=== PATIENT | male | born 1965 | race Caucasian/White ===

== ENCOUNTER → 2020-03-05 10:44 | Outpatient (BNVA) | payer BC, SELFPAY | PROVIDERS: PCP Internal Medicine; Referring Provider Internal Medicine; Visit Provider Orthopaedic Surgery | DX: M17.12 Unilateral primary osteoarthritis, left knee (principal) | CPT/HCPCS: 20610; J1100 ==

== ENCOUNTER 2020-08-27 08:05 | Outpatient (REF) | payer BC, SELFPAY ==
--- NOTE | ~2020-08-27 | XR_ITS ---
EXAMINATION: BILATERAL KNEE X-RAY CLINICAL INFORMATION: Pain COMPARISON: Previous x-ray June 2018 TECHNIQUE: Standing AP view of both knees and lateral and sunrise view of the left knee FINDINGS: Left: Bone alignment is normal. No fracture or dislocation is seen. There is arthritis at the femoral tibial and patellofemoral joints with joint space narrowing and osteophyte formation. There is a small joint effusion. The right knee is unremarkable. XR/XR knee LT 2V IMPRESSION: Left knee arthritis.
--- NOTE | ~2020-08-27 | XR_ITS ---
EXAMINATION: BILATERAL KNEE X-RAY CLINICAL INFORMATION: Pain COMPARISON: Previous x-ray June 2018 TECHNIQUE: Standing AP view of both knees and lateral and sunrise view of the left knee FINDINGS: Left: Bone alignment is normal. No fracture or dislocation is seen. There is arthritis at the femoral tibial and patellofemoral joints with joint space narrowing and osteophyte formation. There is a small joint effusion. The right knee is unremarkable. XR/XR knee standing BI IMPRESSION: Left knee arthritis.
== END 2020-08-27 08:06 | disposition home or self-care (01) ==
LOC: HO.HOSX 08:05
PROVIDERS: Visit Provider Orthopaedic Surgery
DX: M17.12 Unilateral primary osteoarthritis, left knee (principal)
CPT/HCPCS: 73560; 73565

== ENCOUNTER → 2020-12-13 09:51 | Outpatient (BNVA) | payer BC, SELFPAY | PROVIDERS: PCP Internal Medicine; Visit Provider Orthopaedic Surgery | DX: Z01.812 Encounter for preprocedural laboratory examination (principal); Z01.810 Encounter for preprocedural cardiovascular examination ==

== ENCOUNTER → 2021-01-10 13:05 | Outpatient (BNVA) | payer BC, MEDICARE, SELFPAY | PROVIDERS: Visit Provider Physician Assistant ==

== ENCOUNTER 2021-01-15 08:14 | Inpatient (IN) | payer BC, MEDICARE, SELFPAY ==
--- NOTE | 2020-12-13 11:27 | ECG_ITS ---
Test Reason : preop Blood Pressure : / mmHG Vent. Rate : 056 BPM Atrial Rate : 056 BPM P-R Int : 150 ms QRS Dur : 094 ms QT Int : 416 ms P-R-T Axes : 025 010 002 degrees QTc Int : 401 ms Sinus bradycardia Otherwise normal ECG When compared with ECG of 07-FEB-2019 10:32, No significant change was found Referred By: Robin Cruz Electronically Signed By:TEZ SHAW
[2020-12-13 12:35] LABS: MANUAL DIFF FLAG NO
[2020-12-13 12:38] LABS: Basophils Percent Auto 0.5 % (0-2); Eosinophils Absolute Auto 0.1 X10*3/uL (0.0-0.4); Eosinophils Percent Auto 2.2 % (0-4); Hematocrit 43.1 % (42-52); Hemoglobin 14.1 g/dl (14.0-18.0); Imm Gran Abs Auto 0.02 X10*3/uL (0.00-0.03); Imm Gran Pct Auto 0.3 % (0.0-0.4); Lymphocytes Absolute Auto 1.4 X10*3/uL (1.2-4.9); Lymphocytes Percent Auto 23.8 % (20-40); Mean Corpuscular HGB Conc 32.7 g/dl (31.0-36.0); Mean Corpuscular Hemoglobin 29.1 pg (27.0-33.0); Mean Corpuscular Volume 88.9 fL (80-98); Mean Platelet Volume 9.4 fL (9.4-12.4); Monocytes Absolute Auto 0.4 X10*3/uL (0.1-1.2); Neutrophils Percent Auto 66.2 % (45-73); Platelet Count 194 X10*3/uL (160-400); Red Blood Count 4.85 X10*6/uL (4.60-5.80); Red Cell Distribution Width 12.9 % (11.0-16.0)
[2020-12-13 13:01] LABS: Estimated Average Glucose 114 mg/dL; Hemoglobin A1c % 5.6 %
[2020-12-13 13:03] LABS: Anion Gap 13 (12-20); Blood Urea Nitrogen 13 mg/dL (9-16); Calcium 9.2 mg/dL (8.4-10.2); Carbon Dioxide 27 mmol/L (22-29); Chloride 106 mmol/L (96-108); Estimated Glomerular Filt Rate > 60; Glucose Random 92 mg/dL (60-115); Sodium 142 mmol/L (135-145)
[2021-01-04 12:02] VITALS: BP 128/86; PULSE 65; RESP 16; O2SAT 96; BMI 30.8
--- NOTE | 2021-01-04 12:18 | P.CONAN_ITS ---
Documented by User: Ny Munguia NP 01/14/21 09:24 HPI - Anesthesia Eval Consult details Narrative: 55yo M for Left Knee Replacement Total PCP cleared h/o urinary retention s/p AMPARO 2018. Discussed risk of same with spinal. Will hold off on scopolamine patch for PONV to reduce urinary rentention risk - low risk for PONV with spinal/MAC/block PMFSH Active Problems Active Problems: All Active Problems (Updated 01/04/21 @ 12:01 by Sharri Zamudio RN) Primary osteoarthritis of left knee (Acute) Past Medical History Medical History (Updated 01/04/21 @ 12:55 by Sharri Zamudio RN) Diabetes Hx of sleep apnea Hypertension Osteoarthritis PONV (postoperative nausea and vomiting) Postoperative urinary retention Family History Family History Father No problems noted. Mother No problems noted. Family history of problems with anesthesia: Yes Surgical History Surgical History (Updated 01/04/21 @ 12:01 by Sharri Zamudio RN) H/O lumpectomy History of shoulder surgery Hx of colonoscopy Status post total hip replacement, right (~03/08/19) History of Problems with Anesthesia: Yes (PONV x 1) Social History Social History Are you a primary vocational childcare teacher to a significant other at home: No Do you presently have visiting nurse or other home services: No Alcohol intake: current Alcohol intake frequency: holidays/special occasions only Patient Tobacco Use Status: Former Tobacco user Quit Date: 2018 Tobacco use type: Cigarette Use of substances other than those prescribed or required for medical reasons: No Have you been hit, kicked, punched, or otherwise hurt by someone within the past year? If so, by whom?: No Are you DNR?: No Advance Directives: No Advance Directives Information Provided: No (info given) Advance Directives on File: No Recently lost weight without trying: No Current occupational status: unemployed Current occupation: right handed/ Narrative Narrative: No recent illness No CP/SOB with housework, walking Meds Allergies Allergy/AdvReac Type Severity Reaction Status Date / Time No Known Allergies Allergy Verified 01/10/21 13:23 [No Known Allergies*] Home Medications Medication Instructions Recorded Confirmed Last Taken Type atenolol 25 mg tablet 25 mg PO DAILY 03/05/20 01/04/21 01/15/21 History atorvastatin 20 mg tablet 20 mg PO DAILY 03/05/20 01/04/21 Unknown History blood sugar diagnostic #10 ea 03/05/20 03/06/20 Unknown History blood-glucose meter #1 ea 03/05/20 03/06/20 Unknown History lancets 30 gauge #100 ea 03/05/20 03/06/20 Unknown History lisinopril 40 mg tablet 40 mg PO DAILY 03/05/20 01/04/21 Unknown History metformin 500 mg tablet 500 mg PO BID 03/05/20 01/04/21 Unknown History glipizide 5 mg tablet 1 tab PO QPM 01/04/21 01/04/21 Unknown History Exam Exam Date and Time: January 04, 2021 1218 Height,Weight and Vital Signs: Height 5 ft 9 in Weight 94.801 kg Last Vital Signs Pulse 65 01/04/21 12:02 Resp 16 01/04/21 12:02 BP 128/86 01/04/21 12:02 Pulse Ox 96 01/04/21 12:02 Pertinent Lab Results Pertinent Lab Results: Laboratory Tests 12/13/20 12/13/20 12/13/20 11:54 11:54 11:54 WBC 6.0 RBC 4.85 Hgb 14.1 Hct 43.1 MCV 88.9 MCH 29.1 MCHC 32.7 RDW 12.9 Plt Count 194 MPV 9.4 Immature Gran % (Auto) 0.3 Neut % (Auto) 66.2 Lymph % (Auto) 23.8 [place] % (Auto) 7.0 Eos % (Auto) 2.2 Baso % (Auto) 0.5 Lymph # (Auto) 1.4 [place] # (Auto) 0.4 Eos # (Auto) 0.1 Baso # (Auto) 0.0 Abs Immat Gran (auto) 0.02 Absolute Neuts (auto) 4.0 Absolute Nucleated RBC 0.000 Nucleated RBC % (auto) 0.0 Sodium 142 Potassium 4.0 Chloride 106 Carbon Dioxide 27 Anion Gap 13 BUN 13 Creatinine 1.00 Estim Creat Clear Calc TNP Estimated GFR > 60 Random Glucose 92 Estimat Average Glucose 114 Hemoglobin A1c % 5.6 Calcium 9.2 Narrative Narrative: EKG 11/2020 Vent. Rate : 056 BPM ? ? Atrial Rate : 056 BPM ?? P-R Int : 150 ms? QRS Dur : 094 ms ? ? QT Int : 416 ms ? ? ? P-R-T Axes : 025 010 002 degrees ?? QTc Int : 401 ms ? Sinus bradycardia Otherwise normal ECG When compared with ECG of 07-FEB-2019 10:32, No significant change was found Airway Mallampati Class: I TM Dist: >3cm Neck ROM: Full Partial: Upper and Lower Loose/Missing/Broken Teeth: No Heart: RRR Lungs: CTAB Assessment and Plan Assessment Anesthesia Assessment: Anesthesia Plan Discussed (Spinal/Block. h/o urinary retention s/p AMPARO 2018. Discussed risk of same with spinal. Will hold off on scopolamine patch for PONV to reduce urinary rentention risk - low risk for PONV with spinal/MAC/block) and PAT Visit Final Anesthetic Review Family History of Problems with Anesthesia: Yes History of Problems with Anesthesia: Yes (PONV x 1) Documented by User: Ramez Beckham MD 01/15/21 09:04 [facility] Past Medical History Medical History (Updated 01/04/21 @ 12:55 by Sharri Zamudio RN) Diabetes Hx of sleep apnea Hypertension Osteoarthritis PONV (postoperative nausea and vomiting) Postoperative urinary retention Family History Family History Father No problems noted. Mother No problems noted. Surgical History Surgical History (Updated 01/04/21 @ 12:01 by Sharri Zamudio RN) H/O lumpectomy History of shoulder surgery Hx of colonoscopy Status post total hip replacement, right (~03/08/19) Social History Social History Are you a primary vocational childcare teacher to a significant other at home: No Do you presently have visiting nurse or other home services: No Alcohol intake: current Alcohol intake frequency: holidays/special occasions only Patient Tobacco Use Status: Former Tobacco user Quit Date: 2018 Tobacco use type: Cigarette Use of substances other than those prescribed or required for medical reasons: No Have you been hit, kicked, punched, or otherwise hurt by someone within the past year? If so, by whom?: No Are you DNR?: No Advance Directives: No Advance Directives Information Provided: No (info given) Advance Directives on File: No Recently lost weight without trying: No Current occupational status: unemployed Current occupation: right handed/ Meds Allergies Allergy/AdvReac Type Severity Reaction Status Date / Time No Known Allergies Allergy Verified 01/10/21 13:23 [No Known Allergies*] Home Medications Medication Instructions Recorded Confirmed Last Taken Type atenolol 25 mg tablet 25 mg PO DAILY 03/05/20 01/04/21 01/15/21 History atorvastatin 20 mg tablet 20 mg PO DAILY 03/05/20 01/04/21 Unknown History blood sugar diagnostic #10 ea 03/05/20 03/06/20 Unknown History blood-glucose meter #1 ea 03/05/20 03/06/20 Unknown History lancets 30 gauge #100 ea 03/05/20 03/06/20 Unknown History lisinopril 40 mg tablet 40 mg PO DAILY 03/05/20 01/04/21 Unknown History metformin 500 mg tablet 500 mg PO BID 03/05/20 01/04/21 Unknown History glipizide 5 mg tablet 1 tab PO QPM 01/04/21 01/04/21 Unknown History Assessment and Plan Final Anesthetic Review NPO: Yes ASA Class: III Final Preanesthetic Review: No Changes in Pt Med Stat, Meds/Allgs Chart Reviewed, Consent Obtained/Reviewed and Anes Risks/Benef Reviewed Patient Risk: Intermediate Procedure Risk: Low Anesthetic Plan Anesthetic Plan: MAC:, Spinal and Regional Block Disposition: Standard PACU
[2021-01-05 11:43] LABS: MRSA Nasal PCR NEGATIVE (Negative); SA Nasal PCR NEGATIVE (Negative)
[2021-01-15] VITALS (15 sets, daily range): BP systolic 99–144; BP diastolic 74–100; PULSE 53–97; RESP 16–18; TEMP 36.4–36.8; O2SAT 94–100
--- NOTE | ~2021-01-15 | XR_ITS ---
EXAMINATION: XR KNEE, LEFT CLINICAL INFORMATION: Left knee replacement COMPARISON: Previous x-ray August 2020 TECHNIQUE: Two views of the left knee. FINDINGS: There is a new 3 component left knee replacement in satisfactory position. No fracture or dislocation is seen. There are postoperative changes to the soft tissues. XR/XR knee LT 2V IMPRESSION: Satisfactory appearance of left knee replacement.
[2021-01-15 08:39] LABS: COVID-19 Test Negative (Negative)
[2021-01-15] MEDS: Lactated Ringers 1,000 ML 100 ML IVCONT (08:44)
[2021-01-15 11:17] LABS: Glucose, Whole Blood 102 mg/dL (60-115)
--- NOTE | 2021-01-15 11:47 | PM.OP ---
Brief Operative Note Date of Service: 01/15/21 Pre-op diagnosis: left knee OA Post-op diagnosis: same Procedure: left TKA Implants: [place] triathalon press fit CR Surgeon: Robin Cruz MD Anesthesia: regional and spinal Was an Linux Systems Analyst used for this Procedure?: Yes Linux Systems Analyst: Shane Senior Estimated blood loss (mL): 200 IV fluids (mL): 1,000 Pathology: other Condition: stable Disposition: PACU
--- NOTE | 2021-01-15 11:48 | P.OP_ITS ---
Operative Note Operative Note Date of Service: 01/15/21 Narrative: Pre-op diagnosis: left knee OA Post-op diagnosis: same Procedure: left TKA Implants: [place] triathalon press fit CR Surgeon: Robin Cruz MD Anesthesia: regional and spinal Was an Milieu Counselor used for this Procedure?: Yes Milieu Counselor: Shane Senior Estimated blood loss (mL): 200 IV fluids (mL): 1,000 Pathology: other Condition: stable Disposition: PACU Procedure in detail: Patient was brought to the operating room and prepped and draped in standard sterile fashion. A time-out was called to identify proper site proper procedure proper surgeon IV antibiotics were administered. 1 g of IV tranexamic acid was administered. I began by making a midline incision down to the retinaculum and performed a medial parapatellar arthrotomy. The patella was translated laterally and the knee was flexed up. The medial femoral condyle was eburnated and I performed a small medial peel and resected the infrapatellar fat pad. The lateral patellar facet was also eburnated. Greenlee's line was used to drill my intramedullary femoral guide and my distal femur cut was made in 5 degrees of valgus. I then measured a # _4__ femur and placed my cutting guide and made my anterior posterior and chamfer cuts protecting the soft tissues at all times. Once I was satisfied with my cut I turned my attention to the tibia. I removed the meniscus and , using an external cutting guide, in line with the tibial crest and the third ray, I made my distal tibial cut ( 3 deg slope and 2mm of off the medial side) while protecting the PCL the posterior soft tissues at all times. An extension block was used to confirm appropriate amount of bony resection. I then sized a #_5__ tibia once I was satisfied with the tibial coverage. I placed my trial and, with the trial femur in place, took the knee through range of motion. I was satisfied with the extension and flexion as well as the stability at 0, 30 and 90 degrees. I then turned my attention to the patella where I removed 1 cm from the undersurface of the patella and then trialed a __35a____ patellar button. Again the knee was taken through range of motion I was satisfied with the tracking. I then returned to the femur and drilled my femoral lug holes and prepared the tibia. A femoral bone plug was placed and the knee was irrigated copiously. I then press fit the patella, tibia and femur in standard fashion. I trialed a 9mm and 10mm insert and selected a 9mminsert. The final insert was placed and a 3 minutes iodine soak with local TXA was performed. A Werewolf device was used to control bleeding. The knee was then closed with a running Quill suture, a 3 0 Vicryl and petey on the skin. Patient was then placed in sterile dressing and brought to recovery room in stable condition there were no known complications.
[2021-01-15] MEDS: 0.9 % Sodium Chloride 1,000 ML 80 ML IVCONT (14:45)
[2021-01-15 15:15] LABS: Glucose, Whole Blood 252 mg/dL (60-115)
--- NOTE | 2021-01-15 17:38 | HO.PM.IMCN ---
History of Present Illness Data of Consult Service Date: 01/15/21 Requesting physician: Robin FELDMAN Reason for consult: Medical management 55-year-old gentleman admitted under Orthopedic surgery for an elective left total knee arthroplasty postoperatively patient is doing fine, denies nausea, vomiting, denies worsening knee pain noted to have blood sugars greater than 200, he denies urinary symptoms of urgency frequency, no chest pain, no palpitation, no lightheadedness or dizziness, at home patient blood sugars are under good control on glipizide and metformin. Review of Systems Review of Systems: General no headache, no dizziness, no fever chills. CVS no chest pain, no palpitation. Respiratory no cough no sob. Gastrointestinal no nausea no vomiting, no abdominal pain Yes all other systems are reviewed and are negative [facility] Medical History Diabetes Hx of sleep apnea Hypertension Osteoarthritis PONV (postoperative nausea and vomiting) Postoperative urinary retention Family History Father No problems noted. Mother No problems noted. Pertinent family history: No family history of premature coronary artery disease Surgical History H/O lumpectomy History of shoulder surgery Hx of colonoscopy Status post total hip replacement, right (~03/08/19) Social History Household Members: Significant Other Housing: House Are you a primary transitional care manager to a significant other at home: No Do you presently have visiting nurse or other home services: No Alcohol intake: current Alcohol intake frequency: holidays/special occasions only Patient Tobacco Use Status: Former Tobacco user Quit Date: 2018 Tobacco use type: Cigarette Use of substances other than those prescribed or required for medical reasons: No Currently Displaying Signs/Symptoms of Drug Intoxication Withdrawal: No Have you been hit, kicked, punched, or otherwise hurt by someone within the past year? If so, by whom?: No Do you feel safe in your current relationship?: Yes Is there a partner from a previous relationship who is making you feel unsafe now?: No Are you made to feel afraid or neglected: No Are you DNR?: No Advance Directives: No Advance Directives Information Provided: No (info given) Advance Directives on File: No Do you have thoughts of harming others: None Do you have a plan to hurt others: No Plan Recently lost weight without trying: No How much weight loss: Not applicable Eating poorly because of decreased appetite: No Nutrition screen score: 0 Nutrition Risks: No Nutritional Risk Poor oral hygiene: No Current occupational status: unemployed Current occupation: right handed/ Meds Allergies Allergy/AdvReac Type Severity Reaction Status Date / Time No Known Allergies Allergy Verified 01/15/21 14:50 [No Known Allergies*] Active Medications: Current Medications Acetaminophen (Acetaminophen 325 Mg Tablet) 650 mg PO Q6H PRN PRN Reason: Pain, Mild (Pain Scale 1-3) Atenolol (Atenolol 25 Mg Tablet) 25 mg PO DAILY [facility]; Protocol Atorvastatin Calcium (Atorvastatin Calcium 20 Mg Tablet) 20 mg PO DAILY [facility] Celecoxib (Celecoxib 200 Mg Capsule) 200 mg PO BID [facility] Docusate Sodium (Docusate Sodium 100 Mg Capsule) 100 mg PO BID [facility] Hydromorphone HCl (Hydromorphone Hcl 0.5 Mg/0.5 Ml Syringe) 0.25 mg IVPUSH Q5M PRN; Protocol PRN Reason: Pain, Severe (Pain Scale 7-10) Hydromorphone HCl (Hydromorphone Hcl 0.5 Mg/0.5 Ml Syringe) 0.25 mg IVPUSH Q4H PRN; Protocol PRN Reason: Pain, Severe (Pain Scale 7-10) Promethazine HCl 12.5 mg/ (Sodium Chloride) 50.5 mls @ 202 mls/hr IV ONCE PRN PRN Reason: Nausea and Vomiting Sodium Chloride (Ns) 1,000 mls @ 80 mls/hr IVCONT .[id number] [facility] Last Admin: 01/15/21 14:45 Dose: 80 mls/hr Documented by: Cefazolin Sodium/Dextrose (Ancef) 2 gm in 50 mls @ 100 mls/hr IV POSTOP [facility] Insulin Human Lispro (Insulin Lispro 100 Unit/Ml 3 Ml Vial) 0 unit SUBCUT QIDACHS [facility]; Protocol Ketorolac Tromethamine (Ketorolac Tromethamine 15 Mg/Ml Vial) 15 mg IVPUSH ONCE PRN PRN Reason: Pain, Moderate (Pain Scale 4-6 Ondansetron HCl (Ondansetron Hcl 4 Mg/2 Ml Vial) 4 mg IVPUSH ONCE PRN PRN Reason: Nausea and Vomiting Ondansetron HCl (Ondansetron Hcl 4 Mg/2 Ml Vial) 4 mg IVPUSH Q8H PRN PRN Reason: Nausea and Vomiting Oxycodone HCl (Oxycodone Hcl Immed Release 5 Mg Tablet) 5 mg PO ONCE PRN PRN Reason: Pain, Severe (Pain Scale 7-10) Oxycodone HCl (Oxycodone Hcl Immed Release 5 Mg Tablet) 5 mg PO Q4H PRN PRN Reason: Pain, Moderate (Pain Scale 4-6 Oxycodone HCl (Oxycodone Hcl Er 10 Mg Tab.Er.12h) 10 mg PO BID [facility] Sodium Chloride (0.9 % Sodium Chloride Flush 3 Ml Syringe) 3 ml IVFLUSH QSHIFT [facility] Last Admin: 01/15/21 14:48 Dose: Not Given Documented by: Home Medications Medication Instructions Recorded Confirmed Last Taken Type atenolol 25 mg tablet 25 mg PO DAILY 03/05/20 01/04/21 01/15/21 History atorvastatin 20 mg tablet 20 mg PO DAILY 03/05/20 01/04/21 Unknown History blood sugar diagnostic #10 ea 03/05/20 01/15/21 Unknown History blood-glucose meter #1 ea 03/05/20 01/15/21 Unknown History lancets 30 gauge #100 ea 03/05/20 01/15/21 Unknown History lisinopril 40 mg tablet 40 mg PO DAILY 03/05/20 01/04/21 Unknown History metformin 500 mg tablet 500 mg PO BID 03/05/20 01/04/21 Unknown History glipizide 5 mg tablet 1 tab PO QPM 01/04/21 01/04/21 Unknown History Physical Exam Vital Signs and Narrative: Vital Signs: Last Vital Signs Temp 97.6 F 01/15/21 15:10 Pulse 69 01/15/21 15:10 Resp 16 01/15/21 15:10 BP 122/81 01/15/21 15:10 Pulse Ox 97 01/15/21 15:10 Body Mass Index 30.8 General alert oriented x3,no acute distress. Neck supple, no JVD. CVS regular rate rhythm, Respiratory lungs clear to auscultation, no respiratory distress, no wheeze, no rhonchi. Gastrointestinal abdomen soft, nontender, bowel sounds audible, no guarding , no rigidity. Extremities no edema. Left knee dressing in place no drainage noted Neuro nonfocal /speech clear. Skin no rash Psych appropriate affect Results Labs CBC and Chem 7: 12/13/20 11:54 12/13/20 11:54 Labs: Laboratory Results - last 24 hr 01/15/21 01/15/21 01/15/21 08:13 09:27 15:09 POC Glucose 102 252 H COVID-19 ([facility]ADIS) Negative COVID-19 Clin Com See Note Imaging Radiologist's Impressions: Impressions Knee X-Ray 01/15/21 12:55 IMPRESSION: Satisfactory appearance of left knee replacement. Assessment and Plan (1) Primary osteoarthritis of left knee: Status: Acute 55-year-old gentleman with past medical history significant for [id number] diabetes mellitus, hypertension and elevated cholesterol underwent left knee arthroplasty this morning. Diabetes mellitus type 2 Blood sugars greater than [address] patient on diabetic diet add insulin sliding scale patient is on glipizide and metformin at home will resume home medications Follow blood sugars closely. Hypertension Noted to have soft blood pressure postoperatively therefore will hold lisinopril and continue to Francisco J follow blood pressure closely. Hyperlipidemia will resume lipitor Status post left knee arthroplasty postoperative day 0 Pain management and anticoagulation as per Orthopedic surgery Will follow CBC encourage incentive spirometry Add stool softeners while on high-dose narcotics
--- NOTE | 2021-01-15 18:49 | PC.NURSE ---
IV fluids to stop after current bag is completed per Dr Gonsalves.
[2021-01-15 20:30] LABS: Glucose, Whole Blood 267 mg/dL (60-115)
[2021-01-15] MEDS: Docusate Sodium 100 MG CAPSULE PO (20:55)
[2021-01-15] MEDS: Celecoxib 200 MG CAPSULE PO (20:56)
[2021-01-15] MEDS: Insulin Lispro 100 UNIT/ML 3 ML VIAL SUBCUT (20:56)
[2021-01-15] MEDS: oxyCODONE HCl ER 10 MG TAB.ER.12H PO (20:56)
[2021-01-15] MEDS: HYDROmorphone HCl 0.5 MG/0.5 ML SYRINGE 0.25 MG IVPUSH (20:57)
[2021-01-16 03:50] VITALS: BP 126/78; PULSE 76; RESP 17; TEMP 36.8; O2SAT 95
[2021-01-16 05:33] LABS: MANUAL DIFF FLAG NO
[2021-01-16 05:40] LABS: Basophils Percent Auto 0.1 % (0-2); Hematocrit 36.3 % (42-52); Hemoglobin 12.5 g/dl (14.0-18.0); Imm Gran Abs Auto 0.05 X10*3/uL (0.00-0.03); Imm Gran Pct Auto 0.4 % (0.0-0.4); Lymphocytes Percent Auto 8.6 % (20-40); Mean Corpuscular HGB Conc 34.4 g/dl (31.0-36.0); Mean Corpuscular Hemoglobin 29.5 pg (27.0-33.0); Mean Corpuscular Volume 85.6 fL (80-98); Mean Platelet Volume 9.2 fL (9.4-12.4); Monocytes Absolute Auto 0.9 X10*3/uL (0.1-1.2); Monocytes Percent Auto 7.4 % (2-11); Neutrophils Absolute Auto 10.1 X10*3/uL (2.0-8.3); Neutrophils Percent Auto 83.5 % (45-73); Platelet Count 177 X10*3/uL (160-400); Red Blood Count 4.24 X10*6/uL (4.60-5.80); Red Cell Distribution Width 12.9 % (11.0-16.0); White Blood Count 12.1 X10*3/uL (4.8-10.8)
[2021-01-16 05:58] LABS: Anion Gap 14 (12-20); Blood Urea Nitrogen 15 mg/dL (9-16); Calcium 8.3 mg/dL (8.4-10.2); Carbon Dioxide 25 mmol/L (22-29); Chloride 103 mmol/L (96-108); Creatinine Clr Calc Pharmacy 98.6; Estimated Glomerular Filt Rate > 60; Glucose Fasting 204 mg/dL (60-99); Potassium 4.1 mmol/L (3.3-5.1); Sodium 138 mmol/L (135-145)
[2021-01-16] MEDS: ondansetron HCL 4 MG/2 ML VIAL IVPUSH (06:16)
[2021-01-16 07:31] VITALS: BP 153/69; PULSE 87; RESP 17; TEMP 36.4; O2SAT 99
[2021-01-16] MEDS: atenoloL 25 MG TABLET PO (07:37)
[2021-01-16] MEDS: 0.9 % Sodium Chloride Flush 3 ML SYRINGE IVFLUSH (07:37)
[2021-01-16] MEDS: Atorvastatin Calcium 20 MG TABLET PO (07:37)
[2021-01-16] MEDS: Celecoxib 200 MG CAPSULE PO (07:37)
[2021-01-16] MEDS: Docusate Sodium 100 MG CAPSULE PO (07:37)
[2021-01-16] MEDS: oxyCODONE HCl ER 10 MG TAB.ER.12H PO (07:37)
[2021-01-16] MEDS: Insulin Lispro 100 UNIT/ML 3 ML VIAL SUBCUT ×2 (07:37→11:47)
[2021-01-16] MEDS: HYDROmorphone HCl 0.5 MG/0.5 ML SYRINGE 0.25 MG IVPUSH (07:40)
[2021-01-16 07:50] LABS: Glucose, Whole Blood 197 mg/dL (60-115)
[2021-01-16 07:56] VITALS: BP 153/69; PULSE 87; O2SAT 99
[2021-01-16] MEDS: lisinopriL 20 MG TABLET PO (07:59)
[2021-01-16] MEDS: metFORMIN HCl 500 MG TABLET PO (07:59)
[2021-01-16] MEDS: glipiZIDE 5 MG TABLET PO (07:59)
[2021-01-16 09:05] VITALS: O2SAT 97
--- NOTE | 2021-01-16 09:13 | MHC.CM.PN ---
CM MET WITH PT WHO REPORTS HE LIVES AT HOME WITH HIS AND IS INDEPENDENT WITH CARE AT BASELINE. PT REPORTS HE HAS BEEN USING A CANE AND HAD NO SERVICES POSTBED STITCHER. PT IS AWARE PT IS RECOMMENDING HOME TH[place]APY [place]. PT ASKS FOR A REFERRAL TO BE MADE [facility] A REQUEST THAT HIS NEPHEW, KATY MCKEE, WHO IS A THERAPIST AT THIS AGENCY, BE ASSIGNED TO HIM. REFERRAL AND REQUEST SENT PT REPORTS HE HAS A NEW PCP AT [facility] IN [place], HE BELIEVES THE LAST NAME IS CHELO BUT IS UNSURE. CURRENT DC PLAN IS HOME WITH [facility] TO TRANSPORT
--- NOTE | 2021-01-16 10:07 | MHC.CLN ---
NUTRITION RECOMMEND DIET=DIABETIC 2000 KCAL TO PROVIDE 27.5 KCAL/KG IBW).
--- NOTE | 2021-01-16 10:19 | PM.PNORT ---
Subjective Subjective Date of Service: 01/16/21 Interval history: POD1 s/p LTKA. Patient is resting comfortably in the chair. No overnight events. Pain is well managed. No additional complaints. Physical Exam Vital Signs: Vital Signs: Last Vital Signs Temp 97.6 F 01/16/21 07:31 Pulse 87 01/16/21 07:56 Resp 17 01/16/21 07:31 BP 153/69 H 01/16/21 07:56 Pulse Ox 99 01/16/21 07:56 Body Mass Index 30.8 Const: General: cooperative, healthy appearing and no acute distress Resp: Effort & Inspection: normal respiratory effort and able to speak in complete sentences Cardio: Rate: regular rate Peripheral pulses: Peripheral pulses 2+ throughout GI: Palpation (GI): Soft to palpation Skin: Lesions: no lesions Rashes: no rashes Extrem: Other: left knee no erythema or ecchymosis. no drainage. Aquacel is clean, dry, and intact. NVI. Procedures Date of Service Date of Service: 01/16/21 Progress Note: A&P Assessment and plan (1) S/P total knee arthroplasty: Status: Acute Assessment and Plan: Continue pain mgmnt Begin ASA for dvt ppx begin PT for LTKA Dispo planning-Pending PT eval, pain mgmnt Fall Risk Details Current Medications: Current Medications Acetaminophen (Acetaminophen 325 Mg Tablet) 650 mg PO Q6H PRN PRN Reason: Pain, Mild (Pain Scale 1-3) Aspirin (Aspirin 325 Mg Tablet) 325 mg PO BID@1100,2300 [facility] Atenolol (Atenolol 25 Mg Tablet) 25 mg PO DAILY [facility]; Protocol Last Admin: 01/16/21 07:37 Dose: 25 mg Documented by: Atorvastatin Calcium (Atorvastatin Calcium 20 Mg Tablet) 20 mg PO DAILY [facility] Last Admin: 01/16/21 07:37 Dose: 20 mg Documented by: Celecoxib (Celecoxib 200 Mg Capsule) 200 mg PO BID [facility] Last Admin: 01/16/21 07:37 Dose: 200 mg Documented by: Docusate Sodium (Docusate Sodium 100 Mg Capsule) 100 mg PO BID [facility] Last Admin: 01/16/21 07:37 Dose: 100 mg Documented by: Glipizide (Glipizide 5 Mg Tablet) 5 mg PO DAILY [facility] Last Admin: 01/16/21 07:59 Dose: 5 mg Documented by: Hydromorphone HCl (Hydromorphone Hcl 0.5 Mg/0.5 Ml Syringe) 0.25 mg IVPUSH Q5M PRN; Protocol PRN Reason: Pain, Severe (Pain Scale 7-10) Hydromorphone HCl (Hydromorphone Hcl 0.5 Mg/0.5 Ml Syringe) 0.25 mg IVPUSH Q4H PRN; Protocol PRN Reason: Pain, Severe (Pain Scale 7-10) Last Admin: 01/16/21 07:40 Dose: 0.25 mg Documented by: Promethazine HCl 12.5 mg/ (Sodium Chloride) 50.5 mls @ 202 mls/hr IV ONCE PRN PRN Reason: Nausea and Vomiting Cefazolin Sodium/Dextrose (Ancef) 2 gm in 50 mls @ 100 mls/hr IV POSTOP MCKAYLA Insulin Human Lispro (Insulin Lispro 100 Unit/Ml 3 Ml Vial) 0 unit SUBCUT QIDACHS [facility]; Protocol Last Admin: 01/16/21 07:37 Dose: 2 unit Documented by: Ketorolac Tromethamine (Ketorolac Tromethamine 15 Mg/Ml Vial) 15 mg IVPUSH ONCE PRN PRN Reason: Pain, Moderate (Pain Scale 4-6 Lisinopril (Lisinopril 20 Mg Tablet) 20 mg PO DAILY [facility]; Protocol Last Admin: 01/16/21 07:59 Dose: 20 mg Documented by: Metformin HCl (Metformin Hcl 500 Mg Tablet) 500 mg PO BIDWM [facility] Last Admin: 01/16/21 07:59 Dose: 500 mg Documented by: Ondansetron HCl (Ondansetron Hcl 4 Mg/2 Ml Vial) 4 mg IVPUSH ONCE PRN PRN Reason: Nausea and Vomiting Last Admin: 01/16/21 06:16 Dose: 4 mg Documented by: Ondansetron HCl (Ondansetron Hcl 4 Mg/2 Ml Vial) 4 mg IVPUSH Q8H PRN PRN Reason: Nausea and Vomiting Oxycodone HCl (Oxycodone Hcl Immed Release 5 Mg Tablet) 5 mg PO ONCE PRN PRN Reason: Pain, Severe (Pain Scale 7-10) Oxycodone HCl (Oxycodone Hcl Immed Release 5 Mg Tablet) 5 mg PO Q4H PRN PRN Reason: Pain, Moderate (Pain Scale 4-6 Oxycodone HCl (Oxycodone Hcl Er 10 Mg Tab.Er.12h) 10 mg PO BID [facility] Last Admin: 01/16/21 07:37 Dose: 10 mg Documented by: Sodium Chloride (0.9 % Sodium Chloride Flush 3 Ml Syringe) 3 ml IVFLUSH QSHIFT [facility] Last Admin: 01/16/21 07:37 Dose: 3 ml Documented by: Time Spent With Patient Time: Total time spent is greater than 50% in coordination of care (as documented) at patient's floor/unit and/or counseling patient: Time with patient: less than 15 minutes Quality Stroke Does the patient have a stroke diagnosis?: No VTE Prior VTE?: No VTE Risk Level:: Surgical - very high VTE Device Contraindication: N/A - Device Ordered VTE Drug Contraindication: N/A - Med Ordered
--- NOTE | 2021-01-16 11:11 | HO.PM.IMPN ---
Subjective Subjective Date of Service: 01/16/21 Interval History: Being followed for hypertension and diabetes mellitus, status post left knee arthroplasty complaining of pain and nausea after receiving pain medication, denies lightheadedness dizziness no chest pain no palpitation no other acute overnight issues. Review of Systems General no headache, no dizziness, no fever chills.? CVS no chest pain, no palpitation.? Respiratory no cough no sob.? Gastrointestinal pos. nausea, no vomiting, no abdominal pain Yes all other systems are reviewed and are negative Physical Exam Vital Signs: Vital Signs: Last Vital Signs Temp 97.6 F 01/16/21 07:31 Pulse 87 01/16/21 07:56 Resp 17 01/16/21 07:31 BP 153/69 H 01/16/21 07:56 Pulse Ox 97 01/16/21 09:05 Body Mass Index 30.8 General alert, oriented x3,no acute distress.? Neck supple, no JVD. CVS? regular rate rhythm, Respiratory lungs clear to auscultation, no respiratory distress, no wheeze, no rhonchi. Gastrointestinal abdomen soft, nontender, bowel sounds audible, no guarding , no rigidity. Extremities no edema. Left knee dressing in place,mild swelling Neuro nonfocal /speech clear. Skin no rash Psych appropriate affect Objective Data Active Medications Acetaminophen (Acetaminophen 325 Mg Tablet) 650 mg PO Q6H PRN PRN Reason: Pain, Mild (Pain Scale 1-3) Aspirin (Aspirin 325 Mg Tablet) 325 mg PO BID@1100,2300 [facility] Atenolol (Atenolol 25 Mg Tablet) 25 mg PO DAILY [facility]; Protocol Last Admin: 01/16/21 07:37 Dose: 25 mg Documented by: KARI Atorvastatin Calcium (Atorvastatin Calcium 20 Mg Tablet) 20 mg PO DAILY [facility] Last Admin: 01/16/21 07:37 Dose: 20 mg Documented by: KARI Celecoxib (Celecoxib 200 Mg Capsule) 200 mg PO BID [facility] Last Admin: 01/16/21 07:37 Dose: 200 mg Documented by: KARI Docusate Sodium (Docusate Sodium 100 Mg Capsule) 100 mg PO BID [facility] Last Admin: 01/16/21 07:37 Dose: 100 mg Documented by: KARI Glipizide (Glipizide 5 Mg Tablet) 5 mg PO DAILY [facility] Last Admin: 01/16/21 07:59 Dose: 5 mg Documented by: KARI Hydromorphone HCl (Hydromorphone Hcl 0.5 Mg/0.5 Ml Syringe) 0.25 mg IVPUSH Q5M PRN; Protocol PRN Reason: Pain, Severe (Pain Scale 7-10) Hydromorphone HCl (Hydromorphone Hcl 0.5 Mg/0.5 Ml Syringe) 0.25 mg IVPUSH Q4H PRN; Protocol PRN Reason: Pain, Severe (Pain Scale 7-10) Last Admin: 01/16/21 07:40 Dose: 0.25 mg Documented by: KARI Promethazine HCl 12.5 mg/ (Sodium Chloride) 50.5 mls @ 202 mls/hr IV ONCE PRN PRN Reason: Nausea and Vomiting Cefazolin Sodium/Dextrose (Ancef) 2 gm in 50 mls @ 100 mls/hr IV POSTOP [facility] Insulin Human Lispro (Insulin Lispro 100 Unit/Ml 3 Ml Vial) 0 unit SUBCUT QIDACHS [facility]; Protocol Last Admin: 01/16/21 07:37 Dose: 2 unit Documented by: KARI Ketorolac Tromethamine (Ketorolac Tromethamine 15 Mg/Ml Vial) 15 mg IVPUSH ONCE PRN PRN Reason: Pain, Moderate (Pain Scale 4-6 Lisinopril (Lisinopril 20 Mg Tablet) 20 mg PO DAILY [facility]; Protocol Last Admin: 01/16/21 07:59 Dose: 20 mg Documented by: KARI Metformin HCl (Metformin Hcl 500 Mg Tablet) 500 mg PO BIDWM [facility] Last Admin: 01/16/21 07:59 Dose: 500 mg Documented by: KARI Ondansetron HCl (Ondansetron Hcl 4 Mg/2 Ml Vial) 4 mg IVPUSH ONCE PRN PRN Reason: Nausea and Vomiting Last Admin: 01/16/21 06:16 Dose: 4 mg Documented by: CARINA Ondansetron HCl (Ondansetron Hcl 4 Mg/2 Ml Vial) 4 mg IVPUSH Q8H PRN PRN Reason: Nausea and Vomiting Oxycodone HCl (Oxycodone Hcl Immed Release 5 Mg Tablet) 5 mg PO ONCE PRN PRN Reason: Pain, Severe (Pain Scale 7-10) Oxycodone HCl (Oxycodone Hcl Immed Release 5 Mg Tablet) 5 mg PO Q4H PRN PRN Reason: Pain, Moderate (Pain Scale 4-6 Oxycodone HCl (Oxycodone Hcl Er 10 Mg Tab.Er.12h) 10 mg PO BID [facility] Last Admin: 01/16/21 07:37 Dose: 10 mg Documented by: KARI Sodium Chloride (0.9 % Sodium Chloride Flush 3 Ml Syringe) 3 ml IVFLUSH QSHIFT [facility] Last Admin: 01/16/21 07:37 Dose: 3 ml Documented by: KARI Labs CBC & Chem 7: 01/16/21 05:17 01/16/21 05:17 Labs: Laboratory Results - last 24 hr 01/15/21 01/15/21 01/15/21 09:27 15:09 20:23 MCV MCH MCHC RDW Plt Count MPV Immature Gran % (Auto) Neut % (Auto) Lymph % (Auto) [place] % (Auto) Eos % (Auto) Baso % (Auto) Lymph # (Auto) [place] # (Auto) Eos # (Auto) Baso # (Auto) Abs Immat Gran (auto) Absolute Neuts (auto) Absolute Nucleated RBC Nucleated RBC % (auto) Anion Gap Estim Creat Clear Calc Estimated GFR POC Glucose 102 252 H 267 H Fasting Glucose Calcium 01/16/21 01/16/21 01/16/21 05:17 05:17 07:32 MCV 85.6 MCH 29.5 MCHC 34.4 RDW 12.9 Plt Count 177 MPV 9.2 L Immature Gran % (Auto) 0.4 Neut % (Auto) 83.5 H Lymph % (Auto) 8.6 L [place] % (Auto) 7.4 Eos % (Auto) 0.0 Baso % (Auto) 0.1 Lymph # (Auto) 1.0 L [place] # (Auto) 0.9 Eos # (Auto) 0.0 Baso # (Auto) 0.0 Abs Immat Gran (auto) 0.05 H Absolute Neuts (auto) 10.1 H Absolute Nucleated RBC 0.000 Nucleated RBC % (auto) 0.0 Anion Gap 14 Estim Creat Clear Calc 98.6 Estimated GFR > 60 POC Glucose 197 H Fasting Glucose 204 H Calcium 8.3 L D Assessment and Plan (1) S/P total knee arthroplasty: Status: Acute Assessment and Plan: 55-year-old gentleman with past medical history significant for [id number] diabetes mellitus, hypertension and elevated cholesterol underwent left knee arthroplasty this morning. Diabetes mellitus type 2 Blood sugars remains elevated >200 No symptoms of excessive urination, no thirst Continue diabetic diet /insulin sliding scale Will resume glipizide and metformin follow blood sugars Hypertension Blood pressure trending up will resume lisinopril 20 mg (home dose 40 mg) and continue tenormin. Hyperlipidemia continue lipitor Status post left knee arthroplasty postoperative day 1 Complaining of left knee pain and nausea likely related to narcotics On Colace will add senna since on high-dose narcotic, continue anti emetics dc ivf Hematocrit stable follow hematocrit Encourage use incentive spirometery, PT Continue aspirin for DVT prophylaxis Disposition home with PT services Quality Stroke Does the patient have a stroke diagnosis?: No VTE Prior VTE?: No VTE Risk Level:: Surgical - very high VTE Device Contraindication: N/A - Device Ordered VTE Drug Contraindication: N/A - Med Ordered
[2021-01-16 11:18] VITALS: BP 137/62; PULSE 78; RESP 18; TEMP 36.8; O2SAT 98
[2021-01-16 11:29] LABS: Glucose, Whole Blood 162 mg/dL (60-115)
[2021-01-16] MEDS: Aspirin 325 MG TABLET PO (11:47)
--- NOTE | 2021-01-16 12:28 | HO.POSTANES ---
Post Anesthesia Evaluation Post Anesthesia Evaluation Vital Signs: Vital Signs Temp Pulse Resp BP Pulse Ox 01/16/21 11:18 98.2 F 78 18 137/62 98 01/16/21 09:05 97 01/16/21 07:56 87 153/69 H 99 01/16/21 07:31 97.6 F 87 17 153/69 H 99 01/16/21 03:50 98.2 F 76 17 126/78 95 Anesthesia: Spinal and Nerve Block Mental Status: Awake Pain Control: Satisfactory Nausea/Vomiting: None Hydration: Adequate Anesthesia-Related Issues: No Anes. Related Issues
[2021-01-16 13:29] VITALS: BP 137/62; PULSE 78; O2SAT 98
--- NOTE | 2021-01-16 14:12 | P.DS_ITS ---
DS: Providers Provider Date of Service: 01/16/21 Date of admission: 01/15/21 08:14 Primary care physician: Carmita Mann MD Consults: 01/15/21 12:20 Consult to Hospitalist Routine Consulting Provider: Hospitalist Reason For Exam: diabetes DS: Diagnosis Discharge Diagnosis (1) S/P total knee arthroplasty: Status: Acute DS: Summary Hospital Course Hospital Course: The patient underwent a successful left total knee arthroplasty, was transferred to PACU and then to the floor to recover. During their stay, their vitals were stable, afebrile at 98.2. Labs were unremarkable, H/H 12.5/36.3. POD 1 he was started on ASA for DVT ppx, they also received services twice a day. Prior to discharge, their dressing was change, incision clean dry and intact, new Aquacel dressing applied and the plan was to be discharged home with [facility] services Time Spent with Patient Time attestation: Total time spent providing and/or coordinating discharge services: Discharge coordination time: Less than 30 minutes Quality: Stroke Does the patient have a stroke diagnosis?: No Physical Exam Vital Signs: Vital Signs: Last Vital Signs Temp 98.2 F 01/16/21 11:18 Pulse 78 01/16/21 13:29 Resp 18 01/16/21 11:18 BP 137/62 01/16/21 13:29 Pulse Ox 98 01/16/21 13:29 Body Mass Index 30.8 Const: General: cooperative, healthy appearing and no acute distress Resp: Effort & Inspection: normal respiratory effort and able to speak in complete sentences Cardio: Rate: regular rate Peripheral pulses: Peripheral pulses 2+ throughout GI: Palpation (GI): Soft to palpation Skin: General skin exam: no rashes or lesions noted Extrem: Other: incision clean dry and intact. Ant intact. No erythema or joint effusion. Calf supple nontender. Neurovascularly intact. DS: Data Data Completed and Pending Pending studies at discharge: Pending at discharge 01/15/21 11:34 Surgical [PTH] Routine Labs on day of discharge: Laboratory Results - last 24 hr 01/15/21 01/15/21 01/16/21 15:09 20:23 05:17 WBC 12.1 H RBC 4.24 L Hgb 12.5 L Hct 36.3 L MCV 85.6 MCH 29.5 MCHC 34.4 RDW 12.9 Plt Count 177 MPV 9.2 L Immature Gran % (Auto) 0.4 Neut % (Auto) 83.5 H Lymph % (Auto) 8.6 L Thomas % (Auto) 7.4 Eos % (Auto) 0.0 Baso % (Auto) 0.1 Lymph # (Auto) 1.0 L Thomas # (Auto) 0.9 Eos # (Auto) 0.0 Baso # (Auto) 0.0 Abs Immat Gran (auto) 0.05 H Absolute Neuts (auto) 10.1 H Absolute Nucleated RBC 0.000 Nucleated RBC % (auto) 0.0 Sodium Potassium Chloride Carbon Dioxide Anion Gap BUN Creatinine Estim Creat Clear Calc Estimated GFR POC Glucose 252 H 267 H Fasting Glucose Calcium 01/16/21 01/16/21 01/16/21 05:17 07:32 11:20 WBC RBC Hgb Hct MCV MCH MCHC RDW Plt Count MPV Immature Gran % (Auto) Neut % (Auto) Lymph % (Auto) Thomas % (Auto) Eos % (Auto) Baso % (Auto) Lymph # (Auto) [place] # (Auto) Eos # (Auto) Baso # (Auto) Abs Immat Gran (auto) Absolute Neuts (auto) Absolute Nucleated RBC Nucleated RBC % (auto) Sodium 138 Potassium 4.1 Chloride 103 Carbon Dioxide 25 Anion Gap 14 BUN 15 Creatinine 0.95 Estim Creat Clear Calc 98.6 Estimated GFR > 60 POC Glucose 197 H 162 H Fasting Glucose 204 H Calcium 8.3 L D Discharge Plan Discharge Patient Disposition: Home Health Service Discharge Diagnosis: s/p LT TKA Referrals: [facility] [Outside] - 1 Week Shane Senior PA-C [Physician [facility] Department Supervisor] - 2 Weeks (01/31/21 1:00 [facility] Shane Senior PA-C) Discharge Medications: New acetaminophen 325 mg Tablet 650 mg PO Q6H PRN (Reason: Pain, Mild (Pain Scale 1-3)) 30 Days Qty: 240 RF: 0 aspirin 325 mg Tablet 325 mg PO BID@1100,2300 42 Days Qty: 84 RF: 0 oxycodone 5 mg Tablet 5 mg PO Q4H PRN (Reason: Pain, Moderate (Pain Scale 4-6) 7 Days Qty: 42 RF: 0 Continued glipizide 5 mg tablet 1 tab PO QPM RF: 0 lisinopril 40 mg tablet 40 mg PO DAILY RF: 0 atenolol 25 mg tablet 25 mg PO DAILY RF: 0 atorvastatin 20 mg tablet 20 mg PO DAILY RF: 0 metformin 500 mg tablet 500 mg PO BID RF: 0 (DME) blood sugar diagnostic Strip See Rx Instructions ea .ROUTE DAILY Qty: 10 RF: 0 (DME) blood-glucose meter Misc See Rx Instructions ea .ROUTE DAILY Qty: 1 RF: 0 (DME) lancets 30 gauge misc See Rx Instructions ea .ROUTE DAILY Qty: 100 RF: 0 (DME) walker Misc See Rx Instructions .MEDSUPPLY Qty: 1 RF: 0 Discharge Orders: Discharge Order (Routine); Ordered 01/16/21 Ordered By: Shane Senior Diet: regular diet Activity on Discharge: Use cane or walker Stand Alone Forms: Patient Portal Discharge page Care Plan Goals: Restore function of joint Health Concerns: none Plan of Treatment: * Physical Therapy for Total knee arthroplasty: gait training, ROM 0-12, quad strength * Limit stair climbing * No showering, no tub bath-keep dressing clean, dry and intact * No driving x6 weeks * Continue Aspirin twice a day x 4 weeks * Follow up with [facility] Orth[facility] in 2 weeks Assessment: Physical Therapy Pain management DVT prophylaxis Discharge Date/Time: 01/16/21 15:15
--- NOTE | 2021-01-16 14:31 | MHC.CM.PN ---
PATIENT TO RETURN HOME TODAY WITH [facility] FOR HOME P.T. RN AWARE OF PLAN.
--- NOTE | 2021-01-16 14:40 | W.MHC.F2F ---
Service Date Service Date: 01/16/21 Encounter Date of encounter: 01/16/21 Reasons for Services Reason for physical therapy: home safety and mobility, therapeutic exercises, restore joint function, gait/transfer training, ADL training and energy conservation Reason for occupational therapy: home safety and mobility, therapeutic exercises, restore joint function, gait/transfer training, ADL training and energy conservation MD Overseeing Care: Robin Cruz Homebound: Leaving the home is medically contraindicated at this time without the asist of a device and/or another person due th the listed conditions above and below. Reason homebound: unsteady gait / fall risk, leg weakness, pain with ambulation, poor balance / fall risk and unable to drive Homebound supporting statement: Pt. is considered home bound due to recent surgery. Unable to drive, poor balance, poor gait mechanics. Certification: Based on the above findings, I certify that this patient is confined to the home and needs intermittent assisted care, physical therapy and/or speech therapy, or continues to need occupational therapy. The patient is under my care, and I have initiated the establishment of the plan of care. The patient will be followed by a physician who will periodically review the plan of care.
== END 2021-01-16 15:15 | disposition home health service (06) | DRG 302 ==
PROVIDERS: Admitting Provider Physician Assistant; PCP Internal Medicine; Visit Provider Orthopaedic Surgery
PROC: 0SRD0JA Replacement of Left Knee Joint with Synthetic Substitute, Uncemented, Open Approach (ICD-10-PCS; CPT 27447; principal; 2021-01-15 09:40)
DX: M17.12 Unilateral primary osteoarthritis, left knee (principal); E11.65 Type 2 diabetes mellitus with hyperglycemia; I10 Essential (primary) hypertension; E78.5 Hyperlipidemia, unspecified; G47.30 Sleep apnea, unspecified; Z20.822 Contact with and (suspected) exposure to COVID-19; Z87.891 Personal history of nicotine dependence; Z79.84 Long term (current) use of oral hypoglycemic drugs; Z79.899 Other long term (current) drug therapy
CPT/HCPCS: 36415; 73560; 80048; 82947; 83036; 85025; 86850; 86900; 86901; 87635; 87640; 87641; 88305; 88311; 93005; 97110; 97116; 97162; C1776; J0690; J1100; J1170; J2250; J2405

== ENCOUNTER → 2021-01-28 13:28 | Outpatient (BNVA) | payer BC, MEDICARE, SELFPAY | PROVIDERS: Visit Provider Physician Assistant ==

== ENCOUNTER 2021-01-28 14:18 | Outpatient (REF) | payer BC, MEDICARE, SELFPAY ==
--- NOTE | ~2021-01-28 | US_ITS ---
EXAMINATION: US VENOUS ULTRASOUND WITH DOPPLER LOWER EXTREMITY, LEFT CLINICAL INFORMATION: Swelling and pain COMPARISON: None TECHNIQUE: Ultrasound of the deep veins is performed from the hip to the calf with compression sonography and color and pulse Doppler assessment. Spectral analysis with color-flow imaging is performed. FINDINGS: There is normal venous compression and respiratory variation and augmented flow. The visualized common femoral vein, superficial femoral vein, profunda femoral vein, popliteal vein, and the trifurcation region shows no evidence of deep venous thrombosis. There is no popliteal fossa cyst. The contralateral right common femoral vein is patent. US/US venous duplex LE LT IMPRESSION: No DVT demonstrated in the left lower extremity.
== END 2021-01-28 14:19 | disposition home or self-care (01) ==
LOC: HO.US 14:18
PROVIDERS: Visit Provider Physician Assistant
DX: Z47.1 Aftercare following joint replacement surgery (principal); M79.662 Pain in left lower leg; R60.9 Edema, unspecified; Z96.652 Presence of left artificial knee joint
CPT/HCPCS: 93971

== ENCOUNTER → 2021-02-13 10:48 | Outpatient (BNVA) | payer BC, MEDICARE, SELFPAY | PROVIDERS: Visit Provider Physician Assistant ==

== ENCOUNTER → 2021-02-18 12:19 | Outpatient (BNVA) | payer BC, MEDICARE, SELFPAY | PROVIDERS: Visit Provider Orthopaedic Surgery ==

== ENCOUNTER → 2021-02-25 09:21 | Outpatient (BNVA) | payer BC, MEDICARE, SELFPAY | PROVIDERS: Visit Provider Orthopaedic Surgery ==

== ENCOUNTER → 2021-03-11 08:17 | Outpatient (BNVA) | payer BC, MEDICARE, SELFPAY | PROVIDERS: Visit Provider Orthopaedic Surgery ==

== ENCOUNTER 2021-03-25 13:00 | Outpatient (RCR) | payer BC, MEDICARE, SELFPAY ==
--- NOTE | 2022-01-03 08:42 | MHC.PT.DC ---
[facility] [place] Office [place] [facility] [place] [facility] [address] Yahaira [place] [address] [phone] F: [phone] F: [phone] F: [phone] F: [phone] Physical Therapy Discharge Report Diagnosis: s/p L knee arthoplasty (01/15/21) and LBP. Date of Surgery: 01/15/2021 Date of Evaluation: 03/21/21 Date of Discharge: 04/21/20 Treatments to Date: 2 Cancellations to Date: No Shows to Date: Discharge Status: Patient Elected to Stop Discharge Summary: Pt did not follow up with therapy after his second visit. Electronically signed by: Milan Beal PT Please sign and return to therapist. Thank you for your referral.
== END 2022-01-03 08:41 | disposition home or self-care (01) ==
LOC: HO.PTCHIC 13:00
PROVIDERS: PCP Internal Medicine; Visit Provider Orthopaedic Surgery
DX: T84.84XD Pain due to internal orthopedic prosthetic devices, implants and grafts, subsequent encounter (principal); M54.50 Low back pain, unspecified; M79.662 Pain in left lower leg; Z96.652 Presence of left artificial knee joint
CPT/HCPCS: 97110; 97140; 97161

== ENCOUNTER 2021-04-05 06:14 | Outpatient (REF) | payer BC, MEDICARE, SELFPAY ==
[2021-04-05 11:56] LABS: Estimated Average Glucose 117 mg/dL; Hemoglobin A1c % 5.7 %
[2021-04-05 12:17] LABS: Alanine Aminotransferase 34 U/L (0-40); Albumin Level 4.1 g/dL (3.5-5.0); Alkaline Phosphatase 69 U/L (39-117); Anion Gap 14 (12-20); Aspartate Amino Transferase 18 U/L (5-37); Bilirubin Total 0.4 mg/dL (0.0-1.0); Blood Urea Nitrogen 16 mg/dL (9-16); Calcium 9.2 mg/dL (8.4-10.2); Carbon Dioxide 25 mmol/L (22-29); Chloride 107 mmol/L (96-108); Cholesterol 145 mg/dL; Estimated Glomerular Filt Rate > 60; Glucose Random 130 mg/dL (60-115); HDL Cholesterol 31 mg/dL; LDL Cholesterol Calculated 90 mg/dl; Potassium 4.2 mmol/L (3.3-5.1); Sodium 142 mmol/L (135-145); Total Protein 6.8 g/dL (6.5-8.0); Triglycerides 122 mg/dL
[2021-04-05 12:23] LABS: Creatinine Urine 189.24 mg/dL; Microalbum/Creatinine Ratio Ur 5.8 ug/mg cr
[2021-04-05 12:35] LABS: Vitamin B12 230 pg/mL (200-900)
[2021-04-06 10:00] LABS: Follicle Stimulating Hormone 6.5 mIU/mL (1.6-8.0); Lutenizing Hormone 2.6 mIU/mL (1.5-9.3); Prolactin 8.6 ng/mL (2.0-18.0)
[2021-04-06 11:01] LABS: Sex Hormone Binding Globulin 15 nmol/L (22-77)
[2021-04-11 14:51] LABS: Testosterone, Free 50.5 pg/mL (35.0-155.0); Testosterone, Total 238 ng/dL (250-1100)
== END 2021-04-05 06:15 | disposition home or self-care (01) ==
LOC: HO.HMGCLDS 06:14
PROVIDERS: Visit Provider Physician Assistant
DX: E11.9 Type 2 diabetes mellitus without complications (principal); E29.1 Testicular hypofunction
CPT/HCPCS: 36415; 80053; 80061; 82043; 82607; 83001; 83002; 83036; 84146; 84270; 84402; 84403

== ENCOUNTER 2021-04-22 08:38 | Outpatient (REF) | payer BC, MEDICARE, SELFPAY ==
--- NOTE | ~2021-04-22 | XR_ITS ---
EXAMINATION: XR KNEE, STANDING AP XR KNEE, LEFT CLINICAL INFORMATION: Status post arthroplasty. Pain. COMPARISON: Radiographs left knee 01/15/2021, standing AP knees 08/27/2020. TECHNIQUE: Standing AP view of both knees is performed. Additional lateral and axial patella views of the left knee are also included. FINDINGS: Left: There has been prior left total knee arthroplasty. The hardware is intact. There is no fracture or dislocation. No destructive process. No osteolysis or periostitis. Axial view patella shows no lateralization or tilting. There is moderate suprapatellar effusion. There is edema suggested involving Hoffa's fat pad and prepatellar soft tissues in region of extensor mechanism. Soft tissue planes are ill-defined around the quadriceps and patellar tendons, respectively. There is no gas tracking in the soft tissues. Right: There is mild narrowing medial knee joint compartment with marginal osteophytes medial femoral condyle and medial tibial plateau. There are no erosive changes or chondrocalcinosis. No destructive process. XR/XR knee LT 2V IMPRESSION: Left: -Status post total knee arthroplasty. Hardware intact. No destructive process. -Edema prepatellar soft tissues, Hoffa's fat., and around extensor mechanism. Suprapatellar effusion. Right: -Degenerative changes medial knee joint compartment.
--- NOTE | ~2021-04-22 | XR_ITS ---
EXAMINATION: XR KNEE, STANDING AP XR KNEE, LEFT CLINICAL INFORMATION: Status post arthroplasty. Pain. COMPARISON: Radiographs left knee 01/15/2021, standing AP knees 08/27/2020. TECHNIQUE: Standing AP view of both knees is performed. Additional lateral and axial patella views of the left knee are also included. FINDINGS: Left: There has been prior left total knee arthroplasty. The hardware is intact. There is no fracture or dislocation. No destructive process. No osteolysis or periostitis. Axial view patella shows no lateralization or tilting. There is moderate suprapatellar effusion. There is edema suggested involving Hoffa's fat pad and prepatellar soft tissues in region of extensor mechanism. Soft tissue planes are ill-defined around the quadriceps and patellar tendons, respectively. There is no gas tracking in the soft tissues. Right: There is mild narrowing medial knee joint compartment with marginal osteophytes medial femoral condyle and medial tibial plateau. There are no erosive changes or chondrocalcinosis. No destructive process. XR/XR knee standing BI IMPRESSION: Left: -Status post total knee arthroplasty. Hardware intact. No destructive process. -Edema prepatellar soft tissues, Hoffa's fat., and around extensor mechanism. Suprapatellar effusion. Right: -Degenerative changes medial knee joint compartment.
== END 2021-04-22 08:39 | disposition home or self-care (01) ==
LOC: HO.HOSX 08:38
PROVIDERS: Visit Provider Orthopaedic Surgery
DX: Z47.1 Aftercare following joint replacement surgery (principal); Z96.652 Presence of left artificial knee joint
CPT/HCPCS: 73560; 73565

== ENCOUNTER 2021-12-11 21:29 | Emergency (ER) | payer BC, MEDICARE, SELFPAY ==
[2021-12-11 21:53] VITALS: BP 146/109; PULSE 84; RESP 16; TEMP 37.3; O2SAT 96; BMI 30.8
--- NOTE | 2021-12-11 22:03 | ED.GENADULT ---
HPI - General Adult General Chief complaint: General Medical Stated complaint: allergic reaction facial swelling Time Seen by Provider: 12/11/21 21:52 Source: patient Mode of arrival: ambulatory Limitations: no limitations History of Present Illness HPI narrative: Patient comes to the emergency room complaining of lip swelling 2 hours prior to arrival. Patient states that he was at home, then his sleep starting burning, initially he thought he had a pimple above his upper lip. Then he went to room air and noticed that his lips were certain to get swollen. Within a few minutes, both upper and lower lips were swollen. Patient denies any shortness of breath, no difficulty breathing. Patient does not have any known allergies, however, patient does take lisinopril 40 mg daily for hypertension. Prior to arrival patient took 2 tablets of Benadryl p.o. Related Data Home Medications Medication Instructions Recorded Confirmed atenolol 25 mg tablet 25 mg PO DAILY 03/05/20 01/04/21 atorvastatin 20 mg tablet 20 mg PO DAILY 03/05/20 01/04/21 blood sugar diagnostic #10 ea 03/05/20 01/15/21 blood-glucose meter #1 ea 03/05/20 01/15/21 lancets 30 gauge #100 ea 03/05/20 01/15/21 lisinopril 40 mg tablet 40 mg PO DAILY 03/05/20 01/04/21 metformin 500 mg tablet 500 mg PO BID 03/05/20 01/04/21 glipizide 5 mg tablet 1 tab PO QPM 01/04/21 01/04/21 metformin 500 mg tablet,extended 1,000 mg PO BID 01/28/21 release 24 hr sennosides 8.6 mg tablet (senna) 8.6 mg PO BEDTIME 01/28/21 Previous Rx's Medication Instructions Recorded walker #1 ea 01/10/21 acetaminophen 325 mg tablet 650 mg PO Q6H PRN Pain, Mild (Pain 01/16/21 Scale 1-3) 30 days #240 tabs aspirin 325 mg tablet 325 mg PO BID@1100,2300 42 days 01/16/21 #84 tabs sennosides 8.6 mg capsule (senna) 8.6 mg PO BEDTIME #30 caps 01/18/21 celecoxib 200 mg capsule (Celebrex) 200 mg PO BID 30 days #60 caps 01/28/21 oxycodone 5 mg tablet 5 mg PO Q4H PRN Pain, Moderate 01/28/21 (Pain Scale 4-6 7 days #42 tabs sulfamethoxazole 800 1 tab PO BID 5 days #10 tabs 02/22/21 mg-trimethoprim 160 mg tablet (Bactrim DS) amoxicillin 500 mg tablet 2,000 mg PO ONCE 1 day #4 tabs 04/03/21 amlodipine 10 mg tablet 10 mg PO DAILY #30 tabs 12/12/21 famotidine 20 mg tablet (Pepcid) 20 mg PO BID #2 tabs 12/12/21 prednisone 50 mg tablet 50 mg PO DAILY #2 tabs 12/12/21 Allergies Allergy/AdvReac Type Severity Reaction Status Date / Time lisinopril AdvReac Angioedema Verified 12/11/21 21:58 Review of Systems Review of Systems: Constitutional : No Weight loss, No Fever, No Chills, No Night Sweats, No Fatigue, No Malaise ENT/Mouth : Complaining of swollen lips, No Hearing loss, No Ear Pain, No Nasal Congestion, No Sinus Pain, No Hoarseness, No sore throat, No Rhinorrhea, No Swallowing Difficulty Eyes: No Eye Pain, No Swelling, No Redness, No Foreign Body, No Discharge, No Vision Changes Cardiovascular : No Chest Pain, No SOB, No Dyspnea on Exertion, No Orthopnea, No Edema, No Palpitations Respiratory : No Cough, No Sputum, No Wheezing, No Smoke Exposure, No Dyspnea Gastrointestinal : No Nausea, No Vomiting, No Diarrhea, No Constipation, No abdominal Pain, No Hematochezia, No Melena Genitourinary : no irregular bleeding, No Dysuria, No Urinary Frequency, No Hematuria, No Urinary Incontinence, No Urgency, No Flank Pain, No Urinary Flow Changes, No Hesitancy Musculoskeletal : No joint pain, No Myalgias, No Joint Swelling Skin : No Skin Lesions, No rash Neuro : No Weakness, No Numbness, No Paresthesias, No Loss of Consciousness, No Dizziness, No Headache Psych : No Anxiety/Panic, No Depression, No SI/HI/AH/VH, No Social Issues, Heme/Lymph: No Bruising, No Bleeding,No Lymphadenopathy Endocrine : No Polyuria, No Polydipsia, No Temperature Intolerance PMFSH Past Medical History Medical History Diabetes Hx of sleep apnea Hypertension Osteoarthritis PONV (postoperative nausea and vomiting) Postoperative urinary retention Primary osteoarthritis of left knee Surgical History H/O lumpectomy History of shoulder surgery Hx of colonoscopy Status post total hip replacement, right (~03/08/19) Family History Family History Father No problems noted. Mother No problems noted. Social History Social History Household Members: Significant Other Housing: House Are you a primary care attendant to a significant other at home: No Do you presently have visiting nurse or other home services: No Alcohol intake: current Alcohol intake frequency: holidays/special occasions only Patient Tobacco Use Status: Former Tobacco user Quit Date: 2018 Tobacco use type: Cigarette Advance Directives: No Advance Directives Information Provided: No service: No Current occupational status: unemployed Current occupation: right handed Physical Exam ED Vital Signs: Vital Signs - 24 hr 12/11/21 21:53 12/11/21 22:36 12/11/21 23:48 Temperature 99.2 F Pulse Rate 84 80 76 Respiratory Rate 16 18 18 Blood Pressure 146/109 H 146/101 H 149/98 H Pulse Oximetry 96 96 96 Oxygen Delivery Method Room Air Room Air Room Air BMI result Body Mass Index 30.8 Const Other: Appearance: Alert. Oriented X3. No acute distress. Eyes: Pupils equal, round and reactive to light. ENT: Mild edema in the uvula, no airway compromise, patient's upper and lower lips are mild to moderately swollen Neck: Normal inspection. Neck supple. No lymph nodes noted. No crepitus CVS: Normal heart rate and rhythm. Pulses normal. Normal S1 and S2 Respiratory: No respiratory distress. Breath sounds normal. No Wheezing. No rales Abdomen: Soft and nontender. No rigidity. No distention. Skin: Skin warm and dry. Normal skin color. Normal skin turgor. Extremities: No lower extremity edema. No Lacerations. No Rash Neuro: Oriented X 3. No motor deficit. No sensory deficit. Moving all extremities. No slurred speech. CN 2 through 12 grossly intact Psych: calm, cooperative, normal affect Course Course Course Narrative: Patient has any edema is likely secondary to lisinopril. At this time, patient is stable. There is no airway compromise. Patient receiving IV dexamethasone, Pepcid, Benadryl Patient received a 2nd dose Solu-Medrol and Pepcid. Patient feeling better. Patient's lower lip is back to normal. Patient has no pharyngeal edema, uvula in back to normal size. Patient's upper lip is slightly swollen but much more improved. I discussed with the patient is borderline whether we should keep him for observation versus sending him home with strict precautions of checking himself every hour throughout the night to make sure that he does not have any further swelling. Patient states that he would prefer to go home. Patient instructed to never use lisinopril again. Patient takes atenolol for his blood pressure as well. Patient will also be given amlodipine. Patient will need to have very close follow-up with his primary care physician for blood pressure check. Medical Decision Making Lab Data Result diagrams: 12/11/21 22:17 12/11/21 21:54 Labs: Lab Results 12/11/21 12/11/21 12/11/21 Range/Units 21:54 21:54 22:17 WBC 10.0 9.8 (4.8-10.8) X10*3/uL RBC 4.85 4.88 (4.60-5.80) X10*6/uL Hgb 14.4 14.5 (14.0-18.0) g/dl Hct 42.7 43.0 (42.0-52.0) % MCV 88.0 88.1 (80.0-98.0) fL MCH 29.7 29.7 (27.0-33.0) pg MCHC 33.7 33.7 (31.0-36.0) g/dl RDW 13.0 13.0 (11.0-16.0) % Plt Count 202 220 (160-400) X10*3/uL MPV 9.2 L 9.2 L (9.4-12.4) fL Immature Gran % (Auto) 0.4 (0.0-0.4) % Neut % (Auto) 53.6 (45-73) % Lymph % (Auto) 19.9 L (20-40) % Hernando % (Auto) 6.3 (2-11) % Eos % (Auto) 19.5 H (0-4) % Baso % (Auto) 0.3 (0-2) % Lymph # (Auto) 2.0 (1.2-4.9) X10*3/uL Hernando # (Auto) 0.6 (0.1-1.2) X10*3/uL Eos # (Auto) 1.9 H (0.0-0.4) X10*3/uL Baso # (Auto) 0.0 (0.0-0.2) X10*3/uL Abs Immat Gran (auto) 0.04 H (0.00-0.03) X10*3/uL Absolute Neuts (auto) 5.2 (2.0-8.3) x10*3/uL Absolute Nucleated RBC 0.000 0.000 (0.0-0.012) X10*3/uL Nucleated RBC % (auto) 0.0 0.0 (0.0-0.2) /100WBC Sodium 143 (135-145) mmol/L Potassium 4.0 (3.3-5.1) mmol/L Chloride 104 (96-108) mmol/L Carbon Dioxide 24 (22-29) mmol/L Anion Gap 19 (12-20) BUN 13 (9-16) mg/dL Creatinine 1.15 (0.5-1.4) mg/dL Estim Creat Clear Calc 80.5 Estimated GFR > 60 Random Glucose 124 H (60-115) mg/dL Calcium 9.5 (8.4-10.2) mg/dL Total Bilirubin 0.5 (0.0-1.0) mg/dL Direct Bilirubin 0.2 (0.0-0.5) mg/dL AST 22 (5-37) U/L ALT 25 (0-40) U/L Alkaline Phosphatase 99 D (39-117) U/L Total Protein 6.8 (6.5-8.0) g/dL Albumin 4.1 (3.5-5.0) g/dL Discharge Plan Discharge Clinical Impression: Angioedema of lips Patient Disposition: Home, Self-Care Instructions: Angioedema (ED) Additional Instructions: Throughout this night, please check herself every hour. If you have any worsening swelling, worsening symptoms, please call 911 and return immediately to the emergency room. Please follow-up with your primary care physician tomorrow. If you have any worsening or new symptoms, please return to the emergency room or call 911 Prescriptions: New prednisone 50 mg tablet 50 mg PO DAILY Qty: 2 0RF famotidine [Pepcid] 20 mg tablet 20 mg PO BID Qty: 2 0RF amlodipine 10 mg tablet 10 mg PO DAILY Qty: 30 0RF No Action senna 8.6 mg capsule 8.6 mg PO BEDTIME Qty: 30 0RF oxycodone 5 mg tablet 5 mg PO Q4H PRN (Reason: Pain, Moderate (Pain Scale 4-6) 7 Days Qty: 42 0RF sulfamethoxazole-trimethoprim [Bactrim DS] 800-160 mg tablet 1 tab PO BID 5 Days Qty: 10 0RF amoxicillin 500 mg tablet 2,000 mg PO ONCE 1 Days Qty: 4 3RF Rx Instructions: take 4 capsules 1 hr prior to dental procedure glipizide 5 mg tablet 1 tab PO QPM acetaminophen 325 mg Tablet 650 mg PO Q6H PRN (Reason: Pain, Mild (Pain Scale 1-3)) 30 Days Qty: 240 0RF aspirin 325 mg Tablet 325 mg PO BID@1100,2300 42 Days Qty: 84 0RF lisinopril 40 mg tablet 40 mg PO DAILY atenolol 25 mg tablet 25 mg PO DAILY atorvastatin 20 mg tablet 20 mg PO DAILY metformin 500 mg tablet 500 mg PO BID (DME) blood sugar diagnostic Strip See Rx Instructions .ROUTE DAILY Qty: 10 Rx Instructions: As directed (DME) blood-glucose meter Misc See Rx Instructions .ROUTE DAILY Qty: 1 Rx Instructions: As directed (DME) lancets 30 gauge misc See Rx Instructions .ROUTE DAILY Qty: 100 Rx Instructions: As directed (DME) walker Misc See Rx Instructions .MEDSUPPLY Qty: 1 0RF Rx Instructions: Folding Front wheeled walker sennosides [senna] 8.6 mg tablet 8.6 mg PO BEDTIME metformin 500 mg tablet extended release 24 hr 1,000 mg PO BID celecoxib [Celebrex] 200 mg capsule 200 mg PO BID 30 Days Qty: 60 3RF
[2021-12-11 22:07] LABS: Hematocrit 42.7 % (42.0-52.0); Hemoglobin 14.4 g/dl (14.0-18.0); Mean Corpuscular HGB Conc 33.7 g/dl (31.0-36.0); Mean Corpuscular Hemoglobin 29.7 pg (27.0-33.0); Mean Platelet Volume 9.2 fL (9.4-12.4); Platelet Count 202 X10*3/uL (160-400); Red Blood Count 4.85 X10*6/uL (4.60-5.80)
[2021-12-11] MEDS: diphenhydrAMINE HCL 50 MG/ML VIAL IVPUSH (22:07)
[2021-12-11] MEDS: Famotidine/PF 20 MG/2 ML VIAL IVPUSH (22:07)
[2021-12-11] MEDS: dexAMETHasone sod phosphate 10 MG/ML VIAL IVPUSH (22:07)
[2021-12-11 22:22] LABS: MANUAL DIFF FLAG NO
[2021-12-11 22:23] LABS: Basophils Percent Auto 0.3 % (0-2); Eosinophils Absolute Auto 1.9 X10*3/uL (0.0-0.4); Eosinophils Percent Auto 19.5 % (0-4); Hemoglobin 14.5 g/dl (14.0-18.0); Imm Gran Abs Auto 0.04 X10*3/uL (0.00-0.03); Imm Gran Pct Auto 0.4 % (0.0-0.4); Lymphocytes Percent Auto 19.9 % (20-40); Mean Corpuscular HGB Conc 33.7 g/dl (31.0-36.0); Mean Corpuscular Hemoglobin 29.7 pg (27.0-33.0); Mean Corpuscular Volume 88.1 fL (80.0-98.0); Mean Platelet Volume 9.2 fL (9.4-12.4); Monocytes Absolute Auto 0.6 X10*3/uL (0.1-1.2); Monocytes Percent Auto 6.3 % (2-11); Neutrophils Absolute Auto 5.2 x10*3/uL (2.0-8.3); Neutrophils Percent Auto 53.6 % (45-73); Platelet Count 220 X10*3/uL (160-400); Red Blood Count 4.88 X10*6/uL (4.60-5.80); White Blood Count 9.8 X10*3/uL (4.8-10.8)
[2021-12-11 22:33] LABS: Alanine Aminotransferase 25 U/L (0-40); Albumin Level 4.1 g/dL (3.5-5.0); Alkaline Phosphatase 99 U/L (39-117); Anion Gap 19 (12-20); Aspartate Amino Transferase 22 U/L (5-37); Bilirubin Direct 0.2 mg/dL (0.0-0.5); Bilirubin Total 0.5 mg/dL (0.0-1.0); Blood Urea Nitrogen 13 mg/dL (9-16); Calcium 9.5 mg/dL (8.4-10.2); Carbon Dioxide 24 mmol/L (22-29); Chloride 104 mmol/L (96-108); Creatinine Clr Calc Pharmacy 80.5; Estimated Glomerular Filt Rate > 60; Glucose Random 124 mg/dL (60-115); Sodium 143 mmol/L (135-145); Total Protein 6.8 g/dL (6.5-8.0)
[2021-12-11 22:36] VITALS: BP 146/101; PULSE 80; RESP 18; O2SAT 96
--- NOTE | 2021-12-11 22:39 | PC.NURSE ---
pt a&ox3, hypertensive, other vss, pt reports reduction in lip swelling, pain has gone from an 8 to a 6/10, 20GIV right AC. no new orders at this time.
--- NOTE | 2021-12-11 22:48 | PC.NURSE ---
Pt is a&o,no sob or chest pain. pt is able to speak in full sentence. no sign of respiratory distress. Medicated per May.
[2021-12-11 23:48] VITALS: BP 149/98; PULSE 76; RESP 18; O2SAT 96
[2021-12-12] MEDS: Famotidine/PF 20 MG/2 ML VIAL IVPUSH (00:25)
[2021-12-12] MEDS: methylPREDNISolone Sod Succ 125 MG/2 ML VIAL IVPUSH (00:25)
--- NOTE | 2021-12-12 00:29 | PC.NURSE ---
pt a&ox3, reporting lip pain/tightness, lips remain swollen, medicated per provider order.
== END 2021-12-12 01:24 | disposition home or self-care (01) ==
PROVIDERS: Emergency Provider Emergency Medicine
DX: T78.3XXA Angioneurotic edema, initial encounter (principal); I10 Essential (primary) hypertension; Z79.899 Other long term (current) drug therapy; Z79.02 Long term (current) use of antithrombotics/antiplatelets; Z79.84 Long term (current) use of oral hypoglycemic drugs; E11.9 Type 2 diabetes mellitus without complications; Z87.891 Personal history of nicotine dependence
CPT/HCPCS: 36415; 80053; 82248; 85025; 85027; 96374; 96375; 96376; 99284; J1100; J1200; J2930

== ENCOUNTER 2022-03-13 08:50 | Outpatient (REF) | payer BC, MEDICARE, SELFPAY ==
--- NOTE | ~2022-03-13 | XR_ITS ---
EXAMINATION: XR KNEES, STANDING AP XR KNEE, LEFT CLINICAL INFORMATION: Knee pain COMPARISON: Standing AP knees and left knee radiographs 04/22/2021. TECHNIQUE: Standing AP view of both knees is performed along with lateral and axial patella views of the left knee. FINDINGS: Right: There is again mild narrowing medial knee joint compartment with associated marginal osteophytes. No erosive change or chondrocalcinosis. Left: Prior total knee arthroplasty. Hardware intact. No destructive process or osteolysis. There is again moderate to large suprapatellar effusion and probable edema in Hoffa's fat pad. No fracture or dislocation. No periostitis. Patella shows no lateralization or tilting. There is interval heterotopic ossification at the superior lateral aspect patella approximately 0.8 x 1.5 cm measured on the axial view. There is also interval corticated posterior directed spurring from the inferior patella 0.8 cm in length. XR/XR knee standing BI IMPRESSION: Right: -Mild narrowing medial knee joint compartment with associated marginal osteophytes. No erosive change. Left: -Prior total knee arthroplasty. Hardware intact. No destructive process or osteolysis. -Moderate to large suprapatellar effusion and probable edema in Hoffa's fat pad. -Interval heterotopic ossification superior lateral aspect left patella measuring 0.8 x 1.5 cm. -Interval corticated 0.8 cm posterior spur from the inferior patella.
--- NOTE | ~2022-03-13 | XR_ITS ---
EXAMINATION: XR KNEES, STANDING AP XR KNEE, LEFT CLINICAL INFORMATION: Knee pain COMPARISON: Standing AP knees and left knee radiographs 04/22/2021. TECHNIQUE: Standing AP view of both knees is performed along with lateral and axial patella views of the left knee. FINDINGS: Right: There is again mild narrowing medial knee joint compartment with associated marginal osteophytes. No erosive change or chondrocalcinosis. Left: Prior total knee arthroplasty. Hardware intact. No destructive process or osteolysis. There is again moderate to large suprapatellar effusion and probable edema in Hoffa's fat pad. No fracture or dislocation. No periostitis. Patella shows no lateralization or tilting. There is interval heterotopic ossification at the superior lateral aspect patella approximately 0.8 x 1.5 cm measured on the axial view. There is also interval corticated posterior directed spurring from the inferior patella 0.8 cm in length. XR/XR knee LT 2V IMPRESSION: Right: -Mild narrowing medial knee joint compartment with associated marginal osteophytes. No erosive change. Left: -Prior total knee arthroplasty. Hardware intact. No destructive process or osteolysis. -Moderate to large suprapatellar effusion and probable edema in Hoffa's fat pad. -Interval heterotopic ossification superior lateral aspect left patella measuring 0.8 x 1.5 cm. -Interval corticated 0.8 cm posterior spur from the inferior patella.
== END 2022-03-13 08:51 | disposition home or self-care (01) ==
LOC: HO.HOSX 08:50
PROVIDERS: Visit Provider Orthopaedic Surgery
DX: Z96.652 Presence of left artificial knee joint (principal); M19.071 Primary osteoarthritis, right ankle and foot; M19.072 Primary osteoarthritis, left ankle and foot; R29.898 Other symptoms and signs involving the musculoskeletal system
CPT/HCPCS: 73560; 73565

== ENCOUNTER 2022-11-14 06:47 | Emergency (ER) | payer OTHER, MEDICARE, SELFPAY ==
--- NOTE | ~2022-11-14 | CT_ITS ---
EXAMINATION: CT ABDOMEN AND PELVIS WITH CONTRAST CLINICAL INFORMATION: Low back pain. Left superior gluteal mass. COMPARISON: None available. TECHNIQUE: Multidetector volumetric images were obtained from the superior aspect of the liver through the pubic symphysis following administration 85 mL of Omnipaque 350 intravenous contrast. Sagittal and coronal reformatted images were obtained on the technologist's workstation. Oral contrast: Yes This CT examination was performed using dose optimization techniques as appropriate, variously including the following: *Automated exposure control *Adjustment of mA and/or kV according to patient size (this includes techniques or standardized protocols for targeted exams where dose is matched to indication/reason for exam; i.e. extremities or head) *Use of iterative reconstruction technique DLP: 897 mGy-cm FINDINGS: LUNG BASES: The visualized lung bases are unremarkable. LIVER, GALLBLADDER, AND BILIARY TREE: Fatty liver. No focal liver lesion or biliary duct dilatation. The gallbladder is unremarkable with no evidence of radiopaque gallstones, gallbladder wall thickening, or obvious pericholecystic inflammatory changes. PANCREAS: Small calcification in the head of the pancreas. The pancreas is otherwise unremarkable. SPLEEN: Unremarkable. ADRENAL GLANDS: Unremarkable. KIDNEYS AND URETERS: The kidneys are normal in size, shape, and attenuation. No hydronephrosis, hydroureter, or calculi seen. No perinephric stranding. Bilateral low-attenuation renal lesions probably representing cysts. No imaging follow-up recommended. BLADDER: Not optimally distended. GASTROINTESTINAL TRACT: Diverticulosis of the colon. There is marked wall thickening of the sigmoid colon. This may be related to diverticular disease. Is difficult to exclude mild sigmoid diverticulitis and clinical correlation recommended. No evidence of obstruction, perforation or abscess. Small and large bowel is otherwise normal. The stomach is normal. ABDOMINAL WALL: Small umbilical and bilateral inguinal hernias containing fat. LYMPH NODES: Normal. VASCULAR: Unremarkable. PELVIC VISCERA: Unremarkable. OSSEOUS STRUCTURES: 4 x 8 cm mass in the left gluteus maximum congestive of a benign lipoma. No septation or solid component is seen. Right hip replacement. Degenerative changes of the left hip and spine. CT/CT abdomen pelvis w IV con IMPRESSION: 4 x 8 cm mass in the left gluteus mercedez muscle consistent with a benign lipoma. Severe diverticular disease of the colon. Fatty liver. Fleischner guidelines were followed.
[2022-11-14 06:53] VITALS: BP 126/96; PULSE 102; RESP 18; TEMP 36.6; O2SAT 96; BMI 32.5
--- NOTE | 2022-11-14 07:46 | ED_ITS ---
HPI - Back Pain/Injury General Chief Complaint: Back Pain/Injury Stated Complaint: Back/Leg Pain Time Seen by Provider: 11/14/22 07:26 Source: patient Mode of arrival: ambulatory Limitations: no limitations History of Present Illness HPI Narrative: 57-year-old male who presents emergency department for evaluation of left lower back pain that radiates down his left leg to his thigh and a mass that he noted in his left buttocks area. Patient states that the pain started when he woke up on Thursday morning 11/12/2022 (2 days prior to evaluation). He describes the pain is a intermittent, sharp pain which is worse with movement and is relieved by rest. The pain is 10/10. The pain is located in his left lower back and radiates to his left thigh. He states that he has been taking ibuprofen without any relief his pain. He denies any numbness or weakness of his left leg. He has not had any loss of bowel or bladder control. He denied fever, chills, nausea, vomiting, fatigue. He does not recount any injury. Patient states that when he stands up he noticed a mass in his left superior buttocks area which he has not noted before. This mass is nontender. Patient denies weight loss, weight gain, night sweats or fatigue. Related Data Home Medications Medication Instructions Recorded Confirmed atenolol 25 mg tablet 25 mg PO DAILY 03/05/20 01/04/21 atorvastatin 20 mg tablet 20 mg PO DAILY 03/05/20 01/04/21 blood sugar diagnostic #10 ea 03/05/20 01/15/21 blood-glucose meter #1 ea 03/05/20 01/15/21 lancets 30 gauge #100 ea 03/05/20 01/15/21 lisinopril 40 mg tablet 40 mg PO DAILY 03/05/20 01/04/21 metformin 500 mg tablet 500 mg PO BID 03/05/20 01/04/21 glipizide 5 mg tablet 1 tab PO QPM 01/04/21 01/04/21 metformin 500 mg tablet,extended 1,000 mg PO BID 01/28/21 release 24 hr sennosides 8.6 mg tablet (senna) 8.6 mg PO BEDTIME 01/28/21 Previous Rx's Medication Instructions Recorded walker #1 ea 01/10/21 acetaminophen 325 mg tablet 650 mg PO Q6H PRN Pain, Mild (Pain 01/16/21 Scale 1-3) 30 days #240 tabs aspirin 325 mg tablet 325 mg PO BID@1100,2300 42 days 01/16/21 #84 tabs sennosides 8.6 mg capsule (senna) 8.6 mg PO BEDTIME #30 caps 01/18/21 celecoxib 200 mg capsule (Celebrex) 200 mg PO BID 30 days #60 caps 01/28/21 oxycodone 5 mg tablet 5 mg PO Q4H PRN Pain, Moderate 01/28/21 (Pain Scale 4-6 7 days #42 tabs sulfamethoxazole 800 1 tab PO BID 5 days #10 tabs 02/22/21 mg-trimethoprim 160 mg tablet (Bactrim DS) amoxicillin 500 mg tablet 2,000 mg PO ONCE 1 day #4 tabs 04/03/21 amlodipine 10 mg tablet 10 mg PO DAILY #30 tabs 12/12/21 famotidine 20 mg tablet (Pepcid) 20 mg PO BID #2 tabs 12/12/21 prednisone 50 mg tablet 50 mg PO DAILY #2 tabs 12/12/21 cyclobenzaprine 10 mg tablet 10 mg PO TID PRN muscle pain or 11/14/22 spasm #20 tabs morphine 15 mg immediate release 15 mg PO Q4-6H PRN pain #10 tabs 11/14/22 tablet Allergies Allergy/AdvReac Type Severity Reaction Status Date / Time lisinopril AdvReac Angioedema Verified 11/14/22 06:53 Review of Systems Review of Systems: Yes all other systems are reviewed and are negative [facility] Past Medical History [facility] Narrative: Social history: He denies tobacco use. He occasionally drinks alcohol. He denies drug use. Medical History Diabetes Hx of sleep apnea Hypertension Osteoarthritis PONV (postoperative nausea and vomiting) Postoperative urinary retention Primary osteoarthritis of left knee Surgical History H/O lumpectomy History of shoulder surgery Hx of colonoscopy Status post total hip replacement, right (~03/08/19) Family History Family History Father No problems noted. Mother No problems noted. Social History Social History Household Members: Significant Other Housing: House Are you a primary menagerie caretaker to a significant other at home: No Do you presently have visiting nurse or other home services: No Alcohol intake: never Patient Tobacco Use Status: Former Tobacco user Quit Date: 2018 Tobacco use type: Cigarette Smoked in Last 30 Days: No Use of substances other than those prescribed or required for medical reasons: No Advance Directives: Yes Advance Directives on File: Yes Advance Directives Date on File: 01/17/21 service: No Current occupational status: unemployed Current occupation: right handed Physical Exam Vital Signs: Vital Signs: Last Vital Signs Temp 98.2 F 11/14/22 10:32 Pulse 62 11/14/22 10:32 Resp 16 11/14/22 10:32 BP 136/91 H 11/14/22 10:32 Pulse Ox 96 11/14/22 10:32 O2 Del Method Room Air 11/14/22 10:32 BMI result Body Mass Index 32.5 Vital signs were normal. Exam: General: Awake, alert in no distress Head: Normocephalic, atraumatic EENT: PERRL, Lids normal, sclera normal, conjunctiva normal, nose normal , ears normal, throat without erythema or exudates Neck: Supple, no adenopathy, trachea midline and nontender Lung: breath sounds symmetric, no wheezing, rales or rhonchi Chest: symmetric movement, nontender Heart: regular rate and rhythm, normal S1, S2 no murmurs or rubs Abdomen: soft, non-tender, nondistended, normal bowel sounds Back: no vertebral tenderness, no CVAT, patient does have tenderness palpation of his paraspinal muscles in lumbar sacral area, there is no point vertebral tenderness. There is spasm of his lower back muscles. Has negative straight leg raises bilaterally. Patient does have a soft, nontender mass in the superior buttocks area measuring approximately 8 cm x 4 cm. There is no increased erythema or warmth over the mass. Extremities: no deformities, moves all extremities symmetrically Skin: no rashes, no lesion, normal color and warmth Neuro: Awake, alert, oriented, normal speech, cranial nerves intact, moves all e xtremities symmetrically Psych: Pleasant, cooperative Medications Administered Discontinued Medications Generic Name Dose Route Start Last Admin Trade Name Marko PRN Reason Stop Dose Admin Cyclobenzaprine HCl 10 mg 11/14/22 11:13 11/14/22 11:24 Cyclobenzaprine Hcl 10 Mg Tablet PO 11/14/22 11:14 10 mg ONCE ONE Administration Sodium Chloride 1,000 mls @ 999 mls/hr 11/14/22 08:45 11/14/22 09:38 Ns IV 11/14/22 09:45 Infused .Q1H1M MCKAYLA Infusion Iohexol 85 ml 11/14/22 09:19 11/14/22 09:20 Iohexol 350 Mg/Ml 100 Ml Infus..Btl IV 11/14/22 09:20 85 ml ONCE ONE Administration Ketorolac Tromethamine 15 mg 11/14/22 07:46 11/14/22 08:33 Ketorolac Tromethamine 15 Mg/Ml Vial IVPUSH 11/14/22 07:47 15 mg ONCE STA Administration Morphine Sulfate 4 mg 11/14/22 11:13 11/14/22 11:24 Morphine Sulfate 4 Mg/Ml Cartridge IVPUSH 11/14/22 11:14 4 mg ONCE STA Administration Protocol Medical Decision Making Medical Decision Making MDM Narrative: 57-year-old male with a history of diabetes mellitus, hypertension, hyperlipidemia, osteoarthritis who presents emergency department for evaluation of 2 days of left lower back pain with pain radiating to his left thigh. Patient does not recount any injury. He did notice an new mass in his left superior buttocks area. Patient's vital signs were unremarkable. Physical examination did reveal tenderness palpation of the paraspinal muscles in the left lumbar sacral region with no point tenderness with palpation over the vertebrae. He had negative straight leg raises bilaterally. He does have a soft nontender mass measuring 8 x 4 cm in the left superior buttocks area. I ordered the following evaluation of the patient: CBC, CMP, CK, PT/INR, PTT, lactic acid, lipase, blood cultures x2, ESR, CRP, CT scan of the abdomen pelvis with IV contrast. Differential Diagnosis Differential diagnosis includes was not limited to musculoskeletal strain, muscle spasm, radiculopathy, lipoma, lymphoma, abscess, hematoma, anemia, electrolyte abnormality, infectious process Admission/Observation Consideration of admission/observation: Escalation of care including admission/observation considered Lab Data My interpretation patient's laboratory evaluation as follows: Elevated glucose 148. Elevated AST and ALT 22 and 51. Elevated bicarb of 30. ESR was normal. CRP was slightly elevated at 0.58. CK was slightly elevated 178. 11/14/22 08:07 11/14/22 08:07 Labs: Lab Results 11/14/22 11/14/22 11/14/22 Range/Units 08:06 08:07 08:07 WBC 5.3 (4.8-10.8) X10*3/uL RBC 5.11 (4.60-5.80) X10*6/uL Hgb 15.1 (14.0-18.0) g/dl Hct 45.0 (42.0-52.0) % MCV 88.1 (80.0-98.0) fL MCH 29.5 (27.0-33.0) pg MCHC 33.6 (31.0-36.0) g/dl RDW 13.2 (11.0-16.0) % Plt Count 184 (160-400) X10*3/uL MPV 8.7 L (9.4-12.4) fL Immature Gran % (Auto) 0.2 (0.0-0.4) % Neut % (Auto) 68.0 (45-73) % Lymph % (Auto) 20.2 (20-40) % [place] % (Auto) 8.0 (2-11) % Eos % (Auto) 3.0 (0-4) % Baso % (Auto) 0.6 (0-2) % Lymph # (Auto) 1.1 L (1.2-4.9) X10*3/uL [place] # (Auto) 0.4 (0.1-1.2) X10*3/uL Eos # (Auto) 0.2 (0.0-0.4) X10*3/uL Baso # (Auto) 0.0 (0.0-0.2) X10*3/uL Abs Immat Gran (auto) 0.01 (0.00-0.03) X10*3/uL Absolute Neuts (auto) 3.6 (2.0-8.3) x10*3/uL Absolute Nucleated RBC 0.000 (0.0-0.012) X10*3/uL Nucleated RBC % (auto) 0.0 (0.0-0.2) /100WBC ESR 7 (0-15) MM/HR PT (11.1-13.3) SEC INR (0.9-1.1) APTT (26.0-36.4) SEC Sodium (135-145) mmol/L Potassium (3.3-5.1) mmol/L Chloride (96-108) mmol/L Carbon Dioxide (22-29) mmol/L Anion Gap (12-20) BUN (9-16) mg/dL Creatinine (0.5-1.4) mg/dL Estim Creat Clear Calc Estimated GFR Random Glucose (60-115) mg/dL Lactic Acid 1.9 (0.5-2.0) mmol/L Calcium (8.4-10.2) mg/dL Total Bilirubin (0.0-1.0) mg/dL AST (5-37) U/L ALT (0-40) U/L Alkaline Phosphatase (39-117) U/L Total Creatine Kinase (38-174) U/L C-Reactive Protein (< or = 0.50) mg/dL Total Protein (6.5-8.0) g/dL Albumin (3.5-5.0) g/dL Lipase (8-78) U/L Urine Color Urine Appearance Urine pH (5.0-9.0) Ur Specific [place] (1.005-1.025) Urine Protein (Neg-Trace) mg/dL Urine Glucose (UA) (Negative) mg/dL Urine Ketones (Negative) mg/dL Urine Blood (Negative) Urine Nitrite (Negative) Ur Leukocyte Esterase (Negative) 11/14/22 11/14/22 11/14/22 Range/Units 08:07 08:07 08:59 WBC (4.8-10.8) X10*3/uL RBC (4.60-5.80) X10*6/uL Hgb (14.0-18.0) g/dl Hct (42.0-52.0) % MCV (80.0-98.0) fL MCH (27.0-33.0) pg MCHC (31.0-36.0) g/dl RDW (11.0-16.0) % Plt Count (160-400) X10*3/uL MPV (9.4-12.4) fL Immature Gran % (Auto) (0.0-0.4) % Neut % (Auto) (45-73) % Lymph % (Auto) (20-40) % [place] % (Auto) (2-11) % Eos % (Auto) (0-4) % Baso % (Auto) (0-2) % Lymph # (Auto) (1.2-4.9) X10*3/uL [place] # (Auto) (0.1-1.2) X10*3/uL Eos # (Auto) (0.0-0.4) X10*3/uL Baso # (Auto) (0.0-0.2) X10*3/uL Abs Immat Gran (auto) (0.00-0.03) X10*3/uL Absolute Neuts (auto) (2.0-8.3) x10*3/uL Absolute Nucleated RBC (0.0-0.012) X10*3/uL Nucleated RBC % (auto) (0.0-0.2) /100WBC ESR (0-15) MM/HR PT 11.9 (11.1-13.3) SEC INR 1.0 (0.9-1.1) APTT 27.0 (26.0-36.4) SEC Sodium 144 (135-145) mmol/L Potassium 4.2 (3.3-5.1) mmol/L Chloride 105 (96-108) mmol/L Carbon Dioxide 30 H (22-29) mmol/L Anion Gap 13 (12-20) BUN 13 (9-16) mg/dL Creatinine 0.99 (0.5-1.4) mg/dL Estim Creat Clear Calc 94.7 Estimated GFR > 60 Random Glucose 148 H (60-115) mg/dL Lactic Acid (0.5-2.0) mmol/L Calcium 9.7 (8.4-10.2) mg/dL Total Bilirubin 0.7 (0.0-1.0) mg/dL AST 22 (5-37) U/L ALT 51 H (0-40) U/L Alkaline Phosphatase 77 (39-117) U/L Total Creatine Kinase 178 H (38-174) U/L C-Reactive Protein 0.56 H (< or = 0.50) mg/dL Total Protein 7.3 (6.5-8.0) g/dL Albumin 4.2 (3.5-5.0) g/dL Lipase 21 (8-78) U/L Urine Color Yellow Urine Appearance Clear Urine pH 5.5 (5.0-9.0) Ur Specific [place] >= 1.030 H (1.005-1.025) Urine Protein Trace (Neg-Trace) mg/dL Urine Glucose (UA) 100 H (Negative) mg/dL Urine Ketones Trace (Negative) mg/dL Urine Blood Negative (Negative) Urine Nitrite Negative (Negative) Ur Leukocyte Esterase Negative (Negative) Independent Interpretation I performed an independent interpretation of an: CT Scan Interpretation: My interpretation patient's CT scan is as follows: The patient's superior buttocks mass is consistent with a lipoma Radiology Impression Discussion of test interpretation with radiology: I have reviewed the radiologist's reading. Radiologist Impression: CT abdomen pelvis w IV con IMPRESSION: 4 x 8 cm mass in the left gluteus mercedez muscle consistent with a benign lipoma. Severe diverticular disease of the colon. Fatty liver. ? Fleischner guidelines were followed. Dictated By: Nancy Coyne MD External Record Review External record reviewed: Other ([place] prescription monitoring program- review) Prescription Management I considered prescription management with: Pain Medication Chronic Conditions Patient?s care impacted by: Diabetes and Hypertension Discharge Plan Discharge Clinical Impression: Radiculopathy of leg, Lipoma of buttock Low back pain Qualifiers: Chronicity: acute Back pain laterality: left Patient Disposition: Home, Self-Care Instructions: Acute Low Back Pain (ED), Lumbar Radiculopathy (ED) Additional Instructions: Your blood work was normal. The CT scan of your abdomen pelvis with IV contrast did reveal some arthritis of the bones of your lower back. The mass in your buttocks area is consistent with a lipoma based on the radiology reading. This is not the cause of your pain. Your pain is most likely caused by inflammation in spasm of the muscles of your lower back which is causing inflammation of the nerve that goes down to your left leg your thigh (radicular pain). Take ibuprofen 200 mg pills, 2 pills pills every 6 hours (3 times a day) for 4 days then you can take this every 6 hours as needed for pain. Take Tylenol (acetaminophen) 2 pills every 4-6 hours as needed for pain. For pain not relieved by ibuprofen or Tylenol take morphine 15 mg pills, 1 pill every 4 hours as needed for pain. This medication will make you sleepy, do not drive or work while taking this medication. Morphine is a narcotic medication and can be addicting. If you are concerned about addiction you can ask the pharmacist for less pills or do not get this prescription filled. Take Flexeril (cyclobenzaprine) 10 mg pills, 1 pill every 6-8 hours as needed for pain or spasm. This medication will make you sleepy. Do not drive or work while taking this medication. Apply ice for 15 minutes to the painful area in your lower back, weight 1 hour then apply heating pad on low for 15 minutes, repeat this process 4 to 6 times a day to help reduce the pain in your lower back and leg. Follow-up with your doctor in 2 days. Please return to the emergency department if your symptoms get worse or if you develop any symptoms that are concerning to you. Prescriptions: New cyclobenzaprine 10 mg tablet 10 mg PO TID PRN (Reason: muscle pain or spasm) Qty: 20 0RF morphine 15 mg tablet 15 mg PO Q4-6H PRN (Reason: pain) Qty: 10 0RF Rx Instructions: The patient may ask for partial fill; Partial Fill upon patient request. No Action senna 8.6 mg capsule 8.6 mg PO BEDTIME Qty: 30 0RF oxycodone 5 mg tablet 5 mg PO Q4H PRN (Reason: Pain, Moderate (Pain Scale 4-6) 7 Days Qty: 42 0RF sulfamethoxazole-trimethoprim [Bactrim DS] 800-160 mg tablet 1 tab PO BID 5 Days Qty: 10 0RF amoxicillin 500 mg tablet 2,000 mg PO ONCE 1 Days Qty: 4 3RF Rx Instructions: take 4 capsules 1 hr prior to dental procedure glipizide 5 mg tablet 1 tab PO QPM acetaminophen 325 mg Tablet 650 mg PO Q6H PRN (Reason: Pain, Mild (Pain Scale 1-3)) 30 Days Qty: 240 0RF aspirin 325 mg Tablet 325 mg PO BID@1100,2300 42 Days Qty: 84 0RF prednisone 50 mg tablet 50 mg PO DAILY Qty: 2 0RF famotidine [Pepcid] 20 mg tablet 20 mg PO BID Qty: 2 0RF amlodipine 10 mg tablet 10 mg PO DAILY Qty: 30 0RF lisinopril 40 mg tablet 40 mg PO DAILY atenolol 25 mg tablet 25 mg PO DAILY atorvastatin 20 mg tablet 20 mg PO DAILY metformin 500 mg tablet 500 mg PO BID (DME) blood sugar diagnostic Strip See Rx Instructions .ROUTE DAILY Qty: 10 Rx Instructions: As directed (DME) blood-glucose meter Misc See Rx Instructions .ROUTE DAILY Qty: 1 Rx Instructions: As directed (DME) lancets 30 gauge misc See Rx Instructions .ROUTE DAILY Qty: 100 Rx Instructions: As directed (DME) walker Misc See Rx Instructions .MEDSUPPLY Qty: 1 0RF Rx Instructions: Folding Front wheeled walker sennosides [senna] 8.6 mg tablet 8.6 mg PO BEDTIME metformin 500 mg tablet extended release 24 hr 1,000 mg PO BID celecoxib [Celebrex] 200 mg capsule 200 mg PO BID 30 Days Qty: 60 3RF
[2022-11-14 08:14] LABS: MANUAL DIFF FLAG NO
[2022-11-14 08:18] LABS: Basophils Percent Auto 0.6 % (0-2); Eosinophils Absolute Auto 0.2 X10*3/uL (0.0-0.4); Hemoglobin 15.1 g/dl (14.0-18.0); Imm Gran Abs Auto 0.01 X10*3/uL (0.00-0.03); Imm Gran Pct Auto 0.2 % (0.0-0.4); Lymphocytes Absolute Auto 1.1 X10*3/uL (1.2-4.9); Lymphocytes Percent Auto 20.2 % (20-40); Mean Corpuscular HGB Conc 33.6 g/dl (31.0-36.0); Mean Corpuscular Hemoglobin 29.5 pg (27.0-33.0); Mean Corpuscular Volume 88.1 fL (80.0-98.0); Mean Platelet Volume 8.7 fL (9.4-12.4); Monocytes Absolute Auto 0.4 X10*3/uL (0.1-1.2); Neutrophils Absolute Auto 3.6 x10*3/uL (2.0-8.3); Platelet Count 184 X10*3/uL (160-400); Red Blood Count 5.11 X10*6/uL (4.60-5.80); Red Cell Distribution Width 13.2 % (11.0-16.0); White Blood Count 5.3 X10*3/uL (4.8-10.8)
[2022-11-14 08:23] LABS: Prothrombin Time 11.9 SEC (11.1-13.3)
[2022-11-14 08:32] LABS: Alanine Aminotransferase 51 U/L (0-40); Albumin Level 4.2 g/dL (3.5-5.0); Alkaline Phosphatase 77 U/L (39-117); Anion Gap 13 (12-20); Aspartate Amino Transferase 22 U/L (5-37); Bilirubin Total 0.7 mg/dL (0.0-1.0); Blood Urea Nitrogen 13 mg/dL (9-16); C Reactive Protein 0.56 mg/dL (< or = 0.50); Calcium 9.7 mg/dL (8.4-10.2); Carbon Dioxide 30 mmol/L (22-29); Chloride 105 mmol/L (96-108); Creatinine Clr Calc Pharmacy 94.7; Estimated Glomerular Filt Rate > 60; Glucose Random 148 mg/dL (60-115); Lipase 21 U/L (8-78); Potassium 4.2 mmol/L (3.3-5.1); Sodium 144 mmol/L (135-145); Total Protein 7.3 g/dL (6.5-8.0)
[2022-11-14 08:33] LABS: Lactic Acid 1.9 mmol/L (0.5-2.0)
[2022-11-14] MEDS: Ketorolac Tromethamine 15 MG/ML VIAL IVPUSH (08:33)
[2022-11-14] MEDS: 0.9 % Sodium Chloride 1,000 ML 999 ML IV (08:37)
[2022-11-14 08:55] VITALS: BP 157/95; PULSE 63; RESP 14; TEMP 36.8; O2SAT 95
[2022-11-14 08:57] LABS: Erythrocyte Sedimentation Rate 7 MM/HR (0-15)
[2022-11-14 09:07] LABS: Appearance Urine Clear; Color Urine Yellow; Glucose Urine UA 100 mg/dL (Negative); Leukocyte Esterase Urine Negative (Negative); Nitrite Urine Negative (Negative); PH 5.5 (5.0-9.0); Specific Gravity - Urine >= 1.030 (1.005-1.025); Urine Blood Negative (Negative); Urine Ketones Trace mg/dL (Negative); Urine Protein Trace mg/dL (Neg-Trace)
[2022-11-14] MEDS: iohexoL 350 MG/ML 100 ML INFUS..BTL 85 ML IV (09:20)
[2022-11-14 10:32] VITALS: BP 136/91; PULSE 62; RESP 16; TEMP 36.8; O2SAT 96
[2022-11-14] MEDS: Cyclobenzaprine HCl 10 MG TABLET PO (11:24)
[2022-11-14] MEDS: Morphine Sulfate 4 MG/ML CARTRIDGE IVPUSH (11:24)
== END 2022-11-14 11:58 | disposition home or self-care (01) ==
PROVIDERS: Emergency Provider Emergency Medicine Emergency Medical Services; PCP Internal Medicine
DX: M54.10 Radiculopathy, site unspecified (principal); D17.1 Benign lipomatous neoplasm of skin and subcutaneous tissue of trunk; M54.50 Low back pain, unspecified; M79.605 Pain in left leg; R11.2 Nausea with vomiting, unspecified; Z87.891 Personal history of nicotine dependence; Z79.899 Other long term (current) drug therapy
CPT/HCPCS: 36415; 74177; 80053; 81003; 82550; 83605; 83690; 85025; 85610; 85652; 85730; 86140; 87040; 96361; 96374; 96375; 99284; J1885; J2270; Q9967

== ENCOUNTER 2023-03-17 10:00 | Outpatient (RCR) | payer OTHER, MEDICARE, SELFPAY | END 2023-03-26 13:55 | disposition home or self-care (01) | LOC: HO.PT 10:00 | PROVIDERS: PCP Internal Medicine; Visit Provider Orthopaedic Surgery Foot and Ankle Surgery | DX: Z96.662 Presence of left artificial ankle joint (principal) | CPT/HCPCS: 97110; 97116; 97140; 97162; 97530 ==

== ENCOUNTER 2023-12-04 19:42 | Emergency (ER) | payer OTHER, MEDICARE, SELFPAY ==
--- NOTE | ~2023-12-04 | XR_ITS ---
EXAMINATION: XR FOOT, LEFT CLINICAL INFORMATION: Pain, question foreign body plantar aspect COMPARISON: None available. TECHNIQUE: AP, lateral, and oblique views of the left foot. FINDINGS: Arthroplasty changes ankle joint appears intact. There is no gross radiopaque foreign body seen. No fracture. No soft tissue air. XR/XR foot LT min 3V IMPRESSION: No gross radiopaque foreign body. No fracture. If a nonopaque foreign body suspected recommend targeted ultrasound. Electronically signed by: Walter Canas MD 12/04/2023 11:02 PM EDT RP
--- NOTE | ~2023-12-04 | US_ITS ---
EXAMINATION: ULTRASOUND EXTREMITY NONVASCULAR CLINICAL INFORMATION: Pain. Rule out wooden splinter in foot. COMPARISON: Left foot radiographs December 04, 2023 TECHNIQUE: Grayscale and color Doppler imaging were obtained in the region of the base of the first toe, evaluating for possible foreign body. FINDINGS: There is diffuse superficial hyperemia and edema noted , however, no focal superficial soft tissue mass is identified. A foreign body is not visualized. There is no well organized fluid collection. US/US extremity nonvascular IMPRESSION: No ultrasound evidence of foreign body. Electronically signed by: Ney Otto MD 12/05/2023 08:33 AM EDT
[2023-12-04 20:41] VITALS: BP 128/99; PULSE 83; RESP 20; TEMP 36.7; O2SAT 95; BMI 31.2
--- NOTE | 2023-12-04 20:44 | ED.WOUNDLAC ---
HPI - Wound/Laceration General Chief Complaint: Wound/Laceration Stated Complaint: L foot injury Time Seen by Provider: 12/05/23 06:05 Source: patient and family Mode of arrival: ambulatory Limitations: no limitations History of Present Illness ED Provider: Dr. Ivana Bland HPI narrative: Patient comes to the emergency room complaining of left plantar foot pain after stepping into pressure treated wood. Patient has a hole where the splinter went in. According to the patient, when he stepped into the wood, he could not initially pull it out, bystanders helped him to pull it out with pliers. Patient states that the pain has gradually become more intense. Denies fever or chills. Patient is concerned that he may get an infection since he has previous metal hardware surgeries in his left extremity and hip. Patient states that he can not bear weight at all due to the pain and swelling. Related Data Home Medications ?Medication ?Instructions ?Recorded ?Confirmed atenolol 25 mg tablet 25 mg PO DAILY 03/05/20 01/04/21 atorvastatin 20 mg tablet 20 mg PO DAILY 03/05/20 01/04/21 blood sugar diagnostic #10 ea 03/05/20 01/15/21 blood-glucose meter #1 ea 03/05/20 01/15/21 lancets 30 gauge #100 ea 03/05/20 01/15/21 lisinopril 40 mg tablet 40 mg PO DAILY 03/05/20 01/04/21 metformin 500 mg tablet 500 mg PO BID 03/05/20 01/04/21 glipizide 5 mg tablet 1 tab PO QPM 01/04/21 01/04/21 metformin 500 mg tablet,extended 1,000 mg PO BID 01/28/21 release 24 hr sennosides 8.6 mg tablet (senna) 8.6 mg PO BEDTIME 01/28/21 Previous Rx's ?Medication ?Instructions ?Recorded walker #1 ea 01/10/21 acetaminophen 325 mg tablet 650 mg (2 x 325 mg) PO Q6H PRN 01/16/21 Pain, Mild (Pain Scale 1-3) 30 days #240 tabs aspirin 325 mg tablet 325 mg PO BID@1100,2300 42 days 01/16/21 #84 tabs sennosides 8.6 mg capsule (senna) 8.6 mg PO BEDTIME #30 caps 01/18/21 celecoxib 200 mg capsule (Celebrex) 200 mg PO BID 30 days #60 caps 01/28/21 oxycodone 5 mg tablet 5 mg PO Q4H PRN Pain, Moderate 01/28/21 (Pain Scale 4-6 7 days #42 tabs sulfamethoxazole 800 1 tab PO BID 5 days #10 tabs 02/22/21 mg-trimethoprim 160 mg tablet (Bactrim DS) amoxicillin 500 mg tablet 2,000 mg (4 x 500 mg) PO ONCE 1 04/03/21 day #4 tabs amlodipine 10 mg tablet 10 mg PO DAILY #30 tabs 12/12/21 famotidine 20 mg tablet (Pepcid) 20 mg PO BID #2 tabs 12/12/21 prednisone 50 mg tablet 50 mg PO DAILY #2 tabs 12/12/21 cyclobenzaprine 10 mg tablet 10 mg PO TID PRN muscle pain or 11/14/22 spasm #20 tabs morphine 15 mg immediate release 15 mg PO Q4-6H PRN pain #10 tabs 11/14/22 tablet Allergies Allergy/AdvReac Type Severity Reaction Status Date / Time lisinopril AdvReac Angioedema Verified 12/04/23 20:43 Review of Systems Review of Systems: Constitutional : No Weight loss, No Fever, No Chills, No Night Sweats, No Fatigue, No Malaise ENT/Mouth : No Hearing loss, No Ear Pain, No Nasal Congestion, No Sinus Pain, No Hoarseness, No sore throat, No Rhinorrhea, No Swallowing Difficulty Eyes: No Eye Pain, No Swelling, No Redness, No Foreign Body, No Discharge, No Vision Changes Cardiovascular : No Chest Pain, No SOB, No Dyspnea on Exertion, No Orthopnea, No Edema, No Palpitations Respiratory : No Cough, No Sputum, No Wheezing, No Smoke Exposure, No Dyspnea Gastrointestinal : No Nausea, No Vomiting, No Diarrhea, No Constipation, No abdominal Pain, No Hematochezia, No Melena Genitourinary : no irregular bleeding, No Dysuria, No Urinary Frequency, No Hematuria, No Urinary Incontinence, No Urgency, No Flank Pain, No Urinary Flow Changes, No Hesitancy Musculoskeletal : No joint pain, No Myalgias, No Joint Swelling Skin : Complaining of plantar pain on the left foot. Patient pulled a large splinter of pressure treated wood Neuro : No Weakness, No Numbness, No Paresthesias, No Loss of Consciousness, No Dizziness, No Headache Psych : No Anxiety/Panic, No Depression, No SI/HI/AH/VH, No Social Issues, Heme/Lymph: No Bruising, No Bleeding,No Lymphadenopathy Endocrine : No Polyuria, No Polydipsia, No Temperature Intolerance PMFSH Past Medical History Medical History Hx of sleep apnea Postoperative urinary retention Diabetes PONV (postoperative nausea and vomiting) Primary osteoarthritis of left knee Osteoarthritis Hypertension Surgical History H/O lumpectomy History of shoulder surgery Hx of colonoscopy Status post total hip replacement, right (~03/08/19) Family History Family History Father No problems noted. Mother No problems noted. Social History Social History Household Members: Significant Other Housing: House Are you a primary director of career resources to a significant other at home: No Do you presently have visiting nurse or other home services: No Alcohol intake: never Patient Tobacco Use Status: Former Tobacco user Tobacco use type: Cigarette Smoked in Last 30 Days: No Use of substances other than those prescribed or required for medical reasons: No Advance Directives: Yes Advance Directives on File: Yes Advance Directives Date on File: 01/17/21 service: No Current occupational status: unemployed Current occupation: right handed Physical Exam Vital Signs: Vital Signs: Last Vital Signs Temp 97.8 F 12/05/23 06:11 Pulse 74 12/05/23 06:11 Resp 16 12/05/23 06:11 BP 153/96 H 12/05/23 06:11 Pulse Ox 96 12/05/23 06:11 O2 Del Method Room Air 12/05/23 06:11 BMI result Body Mass Index 31.2 Const: Other: Appearance: Alert. Oriented X3. No acute distress. Eyes: Pupils equal, round and reactive to light. ENT: Pharynx normal. Neck: Normal inspection. Neck supple. No lymph nodes noted. No crepitus CVS: Normal heart rate and rhythm. Pulses normal. Normal S1 and S2 Respiratory: No respiratory distress. Breath sounds normal. No Wheezing. No rales Abdomen: Soft and nontender. No rigidity. No distention. Skin: Skin warm and dry. Normal skin color. Normal skin turgor. Extremities: In the plantar aspect of the left foot, there is 3 mm x 3 mm foramen. There is no bleeding. There is a bit of surrounding swelling. Patient states that the pain is very significant between his 1st and 2nd toe. Neuro: Oriented X 3. No motor deficit. No sensory deficit. Moving all extremities. No slurred speech. CN 2 through 12 grossly intact Psych: calm, cooperative, normal affect Course Course Course Narrative: This is a Rapid Medical Examination (RME) performed by Isabel Ruiz PA-C in triage. Full HPI, ROS, assessment and treatment plan per primary provider in the Main ED. 58 yo male with pmhx significant for DM here for evaluation of wound to left foot. reports stepping off of his boat when he slipped on pressure treated wood. reports splinters went into the bottom of his left foot/ great toe. he was able to use plyers to remove some of the wood however feels as though there is still wood in there. tetanus updated approx 1 mo ago. reports pain w/ walking. + small 2 cm lac to plantar aspect of right foot, minimal bleeding controlled in triage. no obvious FB. no palpable fb. Plan: xr, ?removal/ repair Medical Decision Making Medical Decision Making [facility] Narrative: -patient is up-to-date with his tetanus shot. -it is unclear if they are still would inside of the foot. An ultrasound of the lower extremity nonvascular has been ordered. It is possible that patient may or may not need an MRI of the foot. We will start with an ultrasound -since patient's foot has gradually become more swollen. Patient's injury happened over 12 hours ago. Patient is receiving IV fluids, vanco and Zosyn to prevent infection. Patient has joint replacement surgeries with hardware, and preventing infection is extremely important -patient also will receiving Toradol IV for pain control. -all of patient's labs pending -labs and ultrasound pending. Sign out given to my colleague Dr. Mccabe Differential Diagnosis Differential Diagnoses: The differential diagnosis associated with the presentation includes (As above) Critical Care Time Critical Care Time Critical Care Time: Yes Total Critical Care Time: 30 Attestation: I have personally provided critical care time. Time includes review of lab data, radiology results, discussion with consultants, and monitoring for potential decompensation. Intervention performed as documented. Discharge Plan Discharge Clinical Impression: Puncture wound of foot Patient Disposition: Still a Patient Prescriptions: No Action senna 8.6 mg capsule 8.6 mg PO BEDTIME Qty: 30 0RF oxycodone 5 mg tablet 5 mg PO Q4H PRN (Reason: Pain, Moderate (Pain Scale 4-6) 7 Days Qty: 42 0RF sulfamethoxazole-trimethoprim [Bactrim DS] 800-160 mg tablet 1 tab PO BID 5 Days Qty: 10 0RF amoxicillin 500 mg tablet 2,000 mg PO ONCE 1 Days Qty: 4 3RF Rx Instructions: take 4 capsules 1 hr prior to dental procedure glipizide 5 mg tablet 1 tab PO QPM acetaminophen 325 mg Tablet 650 mg PO Q6H PRN (Reason: Pain, Mild (Pain Scale 1-3)) 30 Days Qty: 240 0RF aspirin 325 mg Tablet 325 mg PO BID@1100,2300 42 Days Qty: 84 0RF prednisone 50 mg tablet 50 mg PO DAILY Qty: 2 0RF famotidine [Pepcid] 20 mg tablet 20 mg PO BID Qty: 2 0RF amlodipine 10 mg tablet 10 mg PO DAILY Qty: 30 0RF cyclobenzaprine 10 mg tablet 10 mg PO TID PRN (Reason: muscle pain or spasm) Qty: 20 0RF morphine 15 mg tablet 15 mg PO Q4-6H PRN (Reason: pain) Qty: 10 0RF Rx Instructions: The patient may ask for partial fill; Partial Fill upon patient request. lisinopril 40 mg tablet 40 mg PO DAILY atenolol 25 mg tablet 25 mg PO DAILY atorvastatin 20 mg tablet 20 mg PO DAILY metformin 500 mg tablet 500 mg PO BID (DME) blood sugar diagnostic Strip See Rx Instructions .ROUTE DAILY Qty: 10 Rx Instructions: As directed (DME) blood-glucose meter Misc See Rx Instructions .ROUTE DAILY Qty: 1 Rx Instructions: As directed (DME) lancets 30 gauge misc See Rx Instructions .ROUTE DAILY Qty: 100 Rx Instructions: As directed (DME) walker Misc See Rx Instructions .MEDSUPPLY Qty: 1 0RF Rx Instructions: Folding Front wheeled walker sennosides [senna] 8.6 mg tablet 8.6 mg PO BEDTIME metformin 500 mg tablet extended release 24 hr 1,000 mg PO BID celecoxib [Celebrex] 200 mg capsule 200 mg PO BID 30 Days Qty: 60 3RF Print Language: Spanish
[2023-12-05 01:18] VITALS: BP 154/97; PULSE 67; RESP 16; TEMP 36.7; O2SAT 97
--- NOTE | 2023-12-05 01:19 | MHC.EDTECH ---
This pct just assumed care of patient ,vitals taken ,pt comfortable waiting to see Provider ,Pt at [facility] .
--- NOTE | 2023-12-05 01:20 | PC.NURSE ---
LATE ENTRY- Pt from home, a&ox4, respirations even and unlabored. pt reports getting wood chunk stuck in left foot, reports getting it pulled out with pliers and is unsure if there is still a piece still in there. pt able to ambulate but reports pain.
[2023-12-05 04:17] VITALS: BP 148/86; PULSE 64; RESP 16; TEMP 36.6; O2SAT 96
[2023-12-05 06:11] VITALS: BP 153/96; PULSE 74; RESP 16; TEMP 36.6; O2SAT 96
[2023-12-05 07:24] LABS: MANUAL DIFF FLAG NO
[2023-12-05 07:26] LABS: Basophils Percent Auto 0.4 % (0-2); Eosinophils Absolute Auto 0.1 X10*3/uL (0.0-0.4); Eosinophils Percent Auto 1.6 % (0-4); Hematocrit 47.2 % (42.0-52.0); Hemoglobin 16.7 g/dl (14.0-18.0); Imm Gran Abs Auto 0.03 X10*3/uL (0.00-0.03); Imm Gran Pct Auto 0.4 % (0.0-0.4); Lymphocytes Absolute Auto 0.9 X10*3/uL (1.2-4.9); Lymphocytes Percent Auto 11.6 % (20-40); Mean Corpuscular HGB Conc 35.4 g/dl (31.0-36.0); Mean Corpuscular Hemoglobin 30.8 pg (27.0-33.0); Mean Corpuscular Volume 86.9 fL (80.0-98.0); Mean Platelet Volume 8.7 fL (9.4-12.4); Monocytes Absolute Auto 0.6 X10*3/uL (0.1-1.2); Monocytes Percent Auto 6.8 % (2-11); Neutrophils Absolute Auto 6.4 x10*3/uL (2.0-8.3); Neutrophils Percent Auto 79.2 % (45-73); Platelet Count 169 X10*3/uL (160-400); Red Blood Count 5.43 X10*6/uL (4.60-5.80); Red Cell Distribution Width 13.1 % (11.0-16.0); White Blood Count 8.1 X10*3/uL (4.8-10.8)
[2023-12-05] MEDS: Ketorolac Tromethamine 30 MG/ML VIAL IVPUSH (07:26)
[2023-12-05] MEDS: 0.9 % Sodium Chloride 1,000 ML 999 ML IVCONT (07:26)
--- NOTE | 2023-12-05 07:33 | PC.NURSE ---
IV established, labs obtained and sent. second set of cultures being obtained at this time. medicated per the [facility] for pain, IV fluids infusing at this time. call mac remains within reach
[2023-12-05 07:44] LABS: Lactic Acid 1.2 mmol/L (0.5-2.0)
[2023-12-05 07:48] LABS: Alanine Aminotransferase 46 U/L (0-40); Albumin Level 4.5 g/dL (3.5-5.0); Alkaline Phosphatase 76 U/L (39-117); Anion Gap 15 (12-20); Aspartate Amino Transferase 24 U/L (5-37); Bilirubin Direct 0.3 mg/dL (0.0-0.5); Bilirubin Total 1.1 mg/dL (0.0-1.0); Blood Urea Nitrogen 14 mg/dL (9-16); Calcium 9.7 mg/dL (8.4-10.2); Carbon Dioxide 26 mmol/L (22-29); Chloride 104 mmol/L (96-108); Creatinine Clr Calc Pharmacy 104.3; Estimated Glomerular Filt Rate > 60; Glucose Random 140 mg/dL (60-115); Potassium 3.9 mmol/L (3.3-5.1); Sodium 141 mmol/L (135-145); Total Protein 7.5 g/dL (6.5-8.0)
[2023-12-05] MEDS: levoFLOXacin/D5W 500 MG/100 ML PIGGYBACK 100 MG IV (07:49)
--- NOTE | 2023-12-05 07:55 | PC.NURSE ---
antibiotics infusing at this time, ultrasound at bedside. reports minimal improvement after pain medication
[2023-12-05 08:10] VITALS: BP 141/81; PULSE 71; RESP 14; TEMP 36.8; O2SAT 96
[2023-12-05] MEDS: vancomycin/NS 2,000 MG/500 ML PLAST..BAG 250 MG IV (08:50)
[2023-12-05 10:14] VITALS: BP 128/93; PULSE 73; RESP 14; TEMP 36.9; O2SAT 95
[2023-12-05] MEDS: cephALEXin 500 MG CAPSULE 1000 MG PO (10:37)
[2023-12-05 10:46] VITALS: BP 128/93; PULSE 73; RESP 14; TEMP 36.9; O2SAT 95
== END 2023-12-05 10:46 | disposition home or self-care (01) ==
PROVIDERS: Emergency Medicine; Emergency Provider Emergency Medicine
DX: S91.342A Puncture wound with foreign body, left foot, initial encounter (principal); W45.8XXA Other foreign body or object entering through skin, initial encounter; M79.672 Pain in left foot; E11.9 Type 2 diabetes mellitus without complications; I10 Essential (primary) hypertension; Z96.662 Presence of left artificial ankle joint; Z87.891 Personal history of nicotine dependence; Z79.84 Long term (current) use of oral hypoglycemic drugs; Z79.02 Long term (current) use of antithrombotics/antiplatelets; Z79.82 Long term (current) use of aspirin; Z79.899 Other long term (current) drug therapy; Y93.89 Activity, other specified; Y92.89 Other specified places as the place of occurrence of the external cause; Y99.9 Unspecified external cause status
CPT/HCPCS: 36415; 73630; 76882; 80048; 80076; 83605; 85025; 87040; 96365; 96375; 99284; 99285; J1885; J1956; J3370